=== PATIENT | male | born 1940 | race Caucasian/White ===

== ENCOUNTER 2016-06-23 12:08 | Emergency (ER) | payer OTHER ==
[2016-06-23] MEDS ORDERED: IPRATROPIUM/ALBUTEROL 3 ML NEB INH STA (12:32)
[2016-06-23] MEDS ORDERED: predniSONE 20 MG TABLET PO STA (12:34)
[2016-06-23] MEDS ORDERED: predniSONE 20 MG TABLET ONE (12:41)
[2016-06-23] MEDS ORDERED: IPRATROPIUM/ALBUTEROL 3 ML NEB INH ONE (12:47)
[2016-06-23] MEDS ORDERED: SODIUM CHLORIDE 0.9% 1,000 ML IV ONE (13:02)
[2016-06-23] MEDS ORDERED: HEPARIN 5,000 UNIT/ML VIAL IVP ONE (13:08)
[2016-06-23] MEDS ORDERED: ASPIRIN CHEW 81 MG TABLET PO STA (13:08)
[2016-06-23] MEDS ORDERED: HEPARIN 25,000 UNITS/500 ML 500 ML IV STA (13:08)
[2016-06-23] MEDS ORDERED: ASPIRIN CHEW 81 MG TABLET ONE (13:12)
[2016-06-23] MEDS ORDERED: HEPARIN 5,000 UNIT/ML VIAL ONE (13:12)
[2016-06-23] MEDS ORDERED: HEPARIN 25,000 UNITS/500 ML 500 ML IV ONE (13:12)
== END 2016-06-23 15:21 | disposition short-term general hospital (02) ==
DX: I21.4 Non-ST elevation (NSTEMI) myocardial infarction (principal); J44.9 Chronic obstructive pulmonary disease, unspecified; F17.200 Nicotine dependence, unspecified, uncomplicated; I10 Essential (primary) hypertension; E11.9 Type 2 diabetes mellitus without complications; Z79.4 Long term (current) use of insulin; E78.00 Pure hypercholesterolemia, unspecified
CPT/HCPCS: 36415; 71010; 80053; 83690; 84484; 85025; 93005; 93010; 94640; 96365; 96366; 96376; 99285; A9270; J7512; J7620

== ENCOUNTER 2016-06-23 15:20 | Outpatient (CLI) | payer OTHER | END 2016-06-23 23:59 | disposition short-term general hospital (02) | DX: I21.4 Non-ST elevation (NSTEMI) myocardial infarction (principal) | CPT/HCPCS: A0425; A0426 ==

== ENCOUNTER 2016-09-01 13:07 | Emergency (ER) | payer OTHER ==
--- NOTE | 2016-09-01 14:26 | ED Physician Documentation ---
PD HPI MALE - Stated complaint Stated Complaint: RT GROIN ABCESS PX - Chief complaint Chief Complaint: General - History obtained from History obtained from: Patient - History of Present Illness Timing - onset: How many days ago (2-3) Timing - duration: Days Timing - details: Gradual onset, Still present Associated symptoms: Scrotal swelling (right posterior focally). No: Dysuria, Urinary frequency, Discharge, Genital sore / lesion, Testiclar pain Similar symptoms before: Diagnosis (had scrotal abscess and cellulitis in the past, hospitalized for "gangrene" and did okay without surgical debridement.) Review of Systems Constitutional: denies: Fever, Chills Throat: denies: Sore throat Cardiac: denies: Chest pain / pressure, Palpitations Respiratory: denies: Dyspnea, Cough GI: denies: Nausea, Vomiting, Diarrhea : denies: Dysuria, Frequency, Discharge Skin: reports: Lesions (right scrotal as noted in HPI) Musculoskeletal: denies: Neck pain, Back pain Neurologic: denies: Focal weakness, Numbness, Near syncope PD PAST MEDICAL HISTORY - Past Medical History Cardiovascular: Hypertension, High cholesterol Respiratory: Shortness of breath Endocrine/Autoimmune: Type 2 diabetes : Other - Past Surgical History Past Surgical History: Yes General: Colonoscopy Ortho: Other - Present Medications Home Medications: Ambulatory Orders Medication Instructions Recorded Confirmed Insulin Glargine [Lantus Solostar] 12 unit SQ BID 09/04/14 09/01/16 Latanoprost 1 gm MC DAILY PM 09/04/14 09/01/16 Metoprolol Tartrate 50 mg PO BID 09/04/14 09/01/16 Aspirin [Aspirin EC] 500 mg PO DAILY 06/23/16 09/01/16 Atorvastatin Calcium 10 mg PO DAILY 06/23/16 09/01/16 Sulfamethox/Trimeth 800/160 1 each PO BID #14 tablet 09/01/16 [Bactrim Ds 800/160] glyBURIDE [Diabeta] 5 mg PO BID 09/01/16 09/01/16 - Allergies Allergies/Adverse Reactions: Allergies Allergy/AdvReac Type Severity Reaction Status Date / Time No Known Drug Allergies Allergy Verified 09/07/14 14:26 - Social History Does the pt smoke?: Yes Smoking Status: Current every day smoker Does the pt drink ETOH?: No Does the pt have substance abuse?: No - Immunizations Immunizations are current?: Yes PD ED PE NORMAL - Vitals Vital signs reviewed: Yes - General General: Alert and oriented X 3, Well developed/nourished - Cardiac Cardiac: RRR, No murmur - Respiratory Respiratory: Clear bilaterally - Abdomen Abdomen: Soft, Non tender - Male Male : Other (right posterior scrotum with rounded fluctuant red swelling c/w abscess and confirmed with U/S and no blood vessels running at area. Surrounding tissue is not tender nor cellulitic. No sores seen. ) - Rectal Rectal: Deferred - Back Back: No CVA TTP - Derm Derm: Normal color, Warm and dry Results - Vitals Vitals: Oxygen O2 Source Room air - Labs Labs: Microbiology 09/01/16 15:14 Wound Culture - Preliminary Scrotum Procedures - Abscess I&D (location) right posterior scrotum Preparation: Confirmed with ultrasound, Lidocaine 1%, With epi Incision: Incised with scalpel, Purulent drainage, Irrigated, Culture obtained. No: Packed Other: Pt tolerated well, Dressing applied, Antibiotic prescribed PD MEDICAL DECISION MAKING - ED course Complexity details: re-evaluated patient, considered differential (abscess drained and the swelling is markedly decreased. The surrounding tissue is not tender and no surrounding redness; does not appear gangrenous nor cellulitic), d /w patient Departure - Departure Disposition: 01 Home, Self Care Clinical Impression: Abscess of scrotal wall Condition: Stable Record reviewed to determine appropriate education?: Yes Instructions: ED Abscess IandD Prescriptions: Sulfamethox/Trimeth 800/160 [Bactrim Ds 800/160] 1 each PO BID #14 tablet Comments: Soak the scrotum 2-3 times daily for the next few days. Bactrim twice daily for the next week for the infection. Recheck with PMD in about 4 days, call today for an appt. Discharge Date/Time: 09/01/16 15:25
[2016-09-01] MEDS ORDERED: LIDOCAINE 1%-EPI 1:100000 20 ML MDV SUBQ STA (14:43)
[2016-09-01] MEDS ORDERED: SULFAMETH/TRIMETH DS 800/160 MG TABLET PO STA (14:43)
[2016-09-01] MEDS ORDERED: IBUPROFEN 600 MG TABLET PO STA (14:43)
[2016-09-01] MEDS ORDERED: IBUPROFEN 600 MG TABLET PO ONE (14:47)
[2016-09-01] MEDS ORDERED: LIDOCAINE 1%-EPI 1:100000 20 ML MDV ONE (14:47)
[2016-09-01] MEDS ORDERED: SULFAMETH/TRIMETH DS 800/160 MG TABLET PO ONE (14:47)
[2016-09-01 15:24] VITALS: BP 135/88
== END 2016-09-01 15:25 | disposition home or self-care (01) ==
LOC: ED 13:07
DX: N49.2 Inflammatory disorders of scrotum (principal); I10 Essential (primary) hypertension; E11.9 Type 2 diabetes mellitus without complications; F17.200 Nicotine dependence, unspecified, uncomplicated
CPT/HCPCS: 55100; 87070; 87205; 99283; A9270

== ENCOUNTER 2017-03-30 11:13 | Emergency (ER) | payer OTHER ==
[2017-03-30 11:20] VITALS: BP 163/66
[2017-03-30] MEDS ORDERED: LIDOCAINE 2%-EPI 1:100000 20 ML MDV SUBQ STA (11:45)
[2017-03-30] MEDS ORDERED: SULFAMETH/TRIMETH DS 800/160 MG TABLET PO STA (12:01)
--- NOTE | 2017-03-30 12:08 | ED Physician Documentation ---
PD HPI SKIN - Stated complaint Stated Complaint: BUMP ON STOMACH - Chief complaint Chief Complaint: Wound - History obtained from History obtained from: Patient - History of Present Illness Timing - onset: How many days ago (4) Timing - duration: Days (4) Timing - details: Gradual onset Pain level max: 8 Pain level now: 8 Location: Other (R groin) Quality / character: Painful, Swelling Improved by: Other (nothing) Worsened by (comment): COMMENT (nothing) Associated symptoms: No: Fever, Myalgias, Joint pain, Headache, Facial swelling , Dyspnea, Abd pain, N/V/D, Urinary sx Contributing factors: No: Exposed to medication, Exposed to food, Exposed to soap / lotion, Exposed to Poison laina/oak, Insect bite /sting, Recent illness Similar symptoms before: Diagnosis (abscess) Recently seen: Not recently seen Review of Systems Constitutional: denies: Fever, Chills GI: denies: Vomiting : denies: Dysuria, Frequency, Hesitancy PD PAST MEDICAL HISTORY - Past Medical History Past Medical History: Yes Cardiovascular: Hypertension, High cholesterol Respiratory: Shortness of breath Endocrine/Autoimmune: Type 2 diabetes : Other - Past Surgical History Past Surgical History: Yes General: Colonoscopy Ortho: Other - Present Medications Home Medications: Ambulatory Orders Medication Instructions Recorded Confirmed Insulin Glargine [Lantus Solostar] 12 unit SQ BID 09/04/14 09/01/16 Latanoprost 1 gm MC DAILY PM 09/04/14 09/01/16 Metoprolol Tartrate 50 mg PO BID 09/04/14 09/01/16 Aspirin [Aspirin EC] 500 mg PO DAILY 06/23/16 09/01/16 Atorvastatin Calcium 10 mg PO DAILY 06/23/16 09/01/16 Sulfamethox/Trimeth 800/160 1 each PO BID #14 tablet 09/01/16 [Bactrim Ds 800/160] glyBURIDE [Diabeta] 5 mg PO BID 09/01/16 09/01/16 Sulfamethox/Trimeth 800/160 1 each PO BID #14 tablet 03/30/17 [Bactrim Ds 800/160] - Allergies Allergies/Adverse Reactions: Allergies Allergy/AdvReac Type Severity Reaction Status Date / Time No Known Drug Allergies Allergy Verified 09/07/14 14:26 - Social History Does the pt smoke?: Yes Smoking Status: Current every day smoker Does the pt drink ETOH?: No Does the pt have substance abuse?: No - Immunizations Immunizations are current?: Yes PD ED PE NORMAL - Vitals Vital signs reviewed: Yes - General General: Alert and oriented X 3, No acute distress - Male Male : Other (Large right groin abscess approximately golf ball sized. Erythematous and fluctuant. This is at the top of the scrotum.) - Derm Derm: Warm and dry - Neuro Neuro: Alert and oriented X 3 - Psych Psych: Normal mood, Normal affect Results - Vitals Vitals: Vital Signs - 24 hr 03/30/17 11:17 Temperature 36.4 C L Heart Rate 57 L Respiratory 18 Rate Blood Pressure 163/66 H O2 Saturation 99 Oxygen O2 Source Room air Procedures - Abscess I&D (location) Scrotum Preparation: Confirmed with ultrasound, Chlorhexadine, Lidocaine 2 % Incision: Incised with scalpel, Purulent drainage, Irrigated, Packed, Culture obtained Other: Pt tolerated well, Dressing applied, Antibiotic prescribed PD MEDICAL DECISION MAKING - ED course Complexity details: reviewed old records, considered differential, d/w patient ED course: Patient is a 76-year-old male who presents to the emergency department with 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 States that this happens 2-3 times per year. It was incised and drained today. Will start on Bactrim. Has never followed up with a surgeon to see if there is a cyst or fistula tracts that can be removed to prevent this from recurring. Will have him follow-up with his doctor for repeat evaluation and recommend that he see surgery to see if anything surgically can be done. Patient counseled regarding signs and symptoms for which I believe and urgent re-evaluation would be necessary. Patient with good understanding of and agreement to plan and is comfortable going home at this time This document was made in part using voice recognition software. While efforts are made to proofread this document, sound alike and grammatical errors may occur. Departure - Departure Disposition: 01 Home, Self Care Clinical Impression: Abscess of scrotal wall Condition: Good Instructions: ED Abscess IandD [facility]: [facility]Provider Group] Dg Rene MD [Provider Admit Priv/Credential] - your,doctor in 4 days [Other] Prescriptions: Sulfamethox/Trimeth 800/160 [Bactrim Ds 800/160] 1 each PO BID #14 tablet Comments: Take all antibiotics until gone. return if you worsen. Follow up with your doctor in 3-4 days for wound check Discharge Date/Time: 03/30/17 12:19
== END 2017-03-30 12:19 | disposition home or self-care (01) ==
LOC: ED 11:13
DX: N49.2 Inflammatory disorders of scrotum (principal); I10 Essential (primary) hypertension; E11.9 Type 2 diabetes mellitus without complications; Z79.4 Long term (current) use of insulin; E78.00 Pure hypercholesterolemia, unspecified; F17.200 Nicotine dependence, unspecified, uncomplicated
CPT/HCPCS: 55100; 87070; 87205; 99283; A9270

== ENCOUNTER 2023-06-11 20:50 | Outpatient (CLI) | payer OTHER | END 2023-06-11 20:51 | disposition EMS.NT | LOC: EMS 20:50 | DX: S60.512A Abrasion of left hand, initial encounter (principal); S60.511A Abrasion of right hand, initial encounter; S00.93XA Contusion of unspecified part of head, initial encounter; V00.811A Fall from moving wheelchair (powered), initial encounter; Y93.89 Activity, other specified; Y92.480 Sidewalk as the place of occurrence of the external cause ==

== ENCOUNTER 2023-10-06 10:13 | Outpatient (CLI) | payer MEDICARE, MEDICAID | END 2023-10-06 23:59 | disposition short-term general hospital (02) | LOC: EMS 10:13 | PROVIDERS: ATTEND Emergency Medicine | DX: R06.02 Shortness of breath (principal); R42 Dizziness and giddiness | CPT/HCPCS: A0425; A0427; A0888 ==

== ENCOUNTER 2023-12-30 09:30 | Observation (INO) ==
--- NOTE | 2023-12-30 09:37 | ED Physician Documentation ---
History of Present Illness Stated complaint Stated Complaint: GEN WEAKNESS Chief complaint Chief Complaint: General Additonal information Additional information: This is an 83-year-old gentleman with history of COPD, non-STEMI, type II DM, A- fib. He wears oxygen at home (1.5 L at baseline). He was admitted here about a week ago for COPD exacerbation, aspiration pneumonia, mild elevation in troponin, CARISSA on CKD, hyperkalemia. He presents by ambulance this morning with report of generalized weakness. Patient is somewhat of a slow historian and potentially a little delirious/encephalopathic. He says he is been weak for about 8 hours. More short of breath than usual. Paramedics report that he was unable to get his pants on this morning due to weakness. [place] Coma Scale Assess Eye opening: Spontaneous Verbal response: Confused Motor response: Obeys Commands Total score: 14 Meds/Allgy Home Medications Ambulatory Orders Medication Instructions Recorded Confirmed bumetanide 0.5 mg tablet 1.5 mg PO DAILY 12/24/23 12/30/23 carvedilol 25 mg tablet 25 mg PO BID 12/24/23 12/30/23 cholecalciferol (vitamin D3) 125 5,000 unit PO DAILY 12/24/23 12/30/23 mcg (5,000 unit) capsule diphenhydramine 25 1 tab PO QPM PRN sleep 12/24/23 12/30/23 mg-acetaminophen 500 mg tablet (Acetaminophen PM) docusate sodium 100 mg capsule 100 mg PO DAILY PRN constipation 12/24/23 12/30/23 gabapentin 400 mg capsule 400 mg PO QPM 12/24/23 12/30/23 insulin aspar prt-insulin aspart See Rx Instructions subcut BID 12/24/23 12/30/23 100 unit/mL (70-30) subcutaneous soln (Novolog Mix 70-30 U-100 Insuln) isosorbide mononitrate 60 mg 60 mg PO BID 12/24/23 12/30/23 tablet,extended release 24 hr latanoprost 0.005 % eye drops 1 drp ophthalmic (eye) QPM 12/24/23 12/30/23 melatonin 1 mg tablet 4 mg PO HS PRN sleep 12/24/23 12/30/23 semaglutide 0.25 mg or 0.5 mg (2 0.5 mg subcut FR 12/24/23 12/30/23 mg/1.5 mL) subcutaneous pen injector (Ozempic) tiotropium bromide 1.25 2 inh inhalation DAILY 12/24/23 12/30/23 mcg/actuation mist for inhalation (Spiriva Respimat) amlodipine 2.5 mg tablet (Norvasc) 2.5 mg PO DAILY 12/27/23 12/30/23 apixaban 2.5 mg tablet 2.5 mg PO BID 12/27/23 12/30/23 atorvastatin 40 mg tablet (Lipitor) 40 mg PO DAILY 12/27/23 12/30/23 prednisone 20 mg tablet 20 mg PO DAILY #2 tabs 12/27/23 12/30/23 tamsulosin 0.4 mg capsule 0.4 mg PO DAILY 12/27/23 12/30/23 Allergies Allergies Allergy/AdvReac Type Severity Reaction Status Date / Time No Known Drug Allergies Allergy Verified 12/23/23 15:09 [facility] Medical History Medical History (Updated 12/30/23 @ 11:28 by Mika Grady MD) Diabetes Social History Social History Smoking Status: Current every day smoker Do you dip or chew tobacco?: No Do you vape?: No Patient requests smoking cessation consult: No Initiate information on smoking cessation: No Relationship: Level: Assisted Home Mobility Equipment: Wheelchair Do you feel safe in your home environment?: Yes Suffered physical, verbal, emotional, or financial abuse?: No History of Abuse: No POLST Patient has POLST: Yes POLST Status: Full Code Exam Constitutional Slow to answer questions. Unaware of the date. Oriented to person and place. HENMT oropharynx normal Eyes PERRL Respiratory Very diminished breath sounds throughout Cardiovascular Irregularly irregular and rapid without murmur Gastrointestinal abdomen soft to palpation and nontender to palpation Neurology GCS calculation - Eye opening: Spontaneous Verbal response: Confused Motor response: Obeys Commands [place] Coma Scale total score: 14 Results Vitals Vitals: Vital Signs - 24 hr 12/30/23 09:38 12/30/23 09:50 12/30/23 10:06 Temperature 36.8 C Temperature Source Temporal Artery Scan Pulse Rate 95 H 76 Respiratory Rate 25 H 22 Blood Pressure 149/81 H O2 Saturation 92 88 L Oxygen Delivery Method O2 Source Oxymask Oxymask Simple Mask Oxygen Flow Rate If not protocol: Oxygen Flow, liters/minute 4 2 4 Fraction of Inspired Oxygen (FIO2) FiO2 (%) Pain Intensity 2 12/30/23 10:09 12/30/23 10:11 12/30/23 11:45 Temperature Temperature Source Pulse Rate 79 Respiratory Rate Blood Pressure O2 Saturation Oxygen Delivery Method Mask Mask O2 Source Oxygen Flow Rate 4 4 If not protocol: Oxygen Flow, liters/minute 4 Fraction of Inspired Oxygen (FIO2) 75 FiO2 (%) Pain Intensity 12/30/23 13:00 12/30/23 13:29 12/30/23 13:52 Temperature Temperature Source Pulse Rate 92 H 80 77 Respiratory Rate 15 16 Blood Pressure 164/92 H 117/89 O2 Saturation 98 96 Oxygen Delivery Method O2 Source BIPAP Room air Oxygen Flow Rate If not protocol: Oxygen Flow, liters/minute Fraction of Inspired Oxygen (FIO2) 50 FiO2 (%) 50 Pain Intensity 0 0 12/30/23 15:00 Temperature Temperature Source Pulse Rate 80 Respiratory Rate 19 Blood Pressure 176/98 H O2 Saturation 100 Oxygen Delivery Method O2 Source BIPAP Oxygen Flow Rate If not protocol: Oxygen Flow, liters/minute Fraction of Inspired Oxygen (FIO2) FiO2 (%) 50 Pain Intensity 0 Oxygen O2 Source BIPAP Oxygen Flow Rate 4 EKG (time done) 0956: EKG releavant findings:: EKG personally interpreted by author of this note. Relevant findings are: Atrial fibrillation with a ventricular rate of 85. He is right bundle branch block and left anterior fascicular block. There is T wave inversion with mild ST depression laterally. Compared to the most recent prior EKG on the chart from December 22 of this year there is no interval change. Labs Labs: Laboratory Tests 12/30/23 12/30/23 12/30/23 10:06 12:54 13:15 WBC 10.4 RBC 4.25 L Hgb 12.9 L Hct 43.4 MCV 102.1 H MCH 30.4 MCHC 29.7 L RDW 16.3 H Plt Count 111 L MPV 10.5 Neut # (Auto) 7.9 H Lymph # (Auto) 1.6 [place] # (Auto) 0.7 Eos # (Auto) 0.1 Baso # (Auto) 0.0 Absolute Nucleated RBC 0.02 Nucleated RBC % 0.2 Bld Gas Analysis Time 1323 Sample Site RIGHT RADIAL ABG pH 7.23 L ABG pCO2 63 H* ABG pO2 87 ABG HCO3 26.1 H ABG Total CO2 28.0 ABG O2 Saturation 96 ABG Base Excess -2.6 L Viet Test POSITIVE VBG pH 7.152 L* VBG pCO2 77.3 H VBG pO2 41.0 VBG HCO3 26.4 VBG Total CO2 28.8 VBG O2 Saturation 75.4 VBG Base Excess -4.1 L Respiration Rate 18 O2 Delivery Device BiPAP Vent Mode SYNCHRONOUS/TIMES FiO2 50.00 EPAP 8 IPAP 14 Sodium 140 Potassium 4.7 H Chloride 108 Carbon Dioxide 29 Anion Gap 3.0 L BUN 70 H Creatinine 3.3 H Estimated GFR (MDRD) 18 L Glucose 265 H Lactic Acid 0.9 Calcium 8.7 Magnesium 2.4 H Total Bilirubin 0.4 AST 6 L ALT 8 L Alkaline Phosphatase 99 B-Natriuretic Peptide 958 H Total Protein 5.6 L Albumin 3.4 Globulin 2.2 Albumin/Globulin Ratio 1.5 Urine Color YELLOW Urine Clarity CLEAR Urine pH 6.0 Ur Specific [place] 1.020 Urine Protein NEGATIVE Urine Glucose (UA) >=1000 H Urine Ketones NEGATIVE Urine Occult Blood NEGATIVE Urine Nitrite NEGATIVE Urine Bilirubin NEGATIVE Urine Urobilinogen 0.2 (NORMAL) Ur Leukocyte Esterase NEGATIVE Ur Microscopic Review NOT INDICATED Urine Opiates Screen NEGATIVE Ur Buprenorphine Scrn NEGATIVE Ur Oxycodone Screen NEGATIVE Urine Methadone Screen NEGATIVE Ur Barbiturates Screen NEGATIVE Ur Tricyclics Screen NEGATIVE Ur Phencyclidine Scrn NEGATIVE Ur Amphetamine Screen NEGATIVE U Methamphetamines Scrn NEGATIVE U Benzodiazepines Scrn NEGATIVE Urine Cocaine Screen NEGATIVE U Cannabinoids Screen NEGATIVE Ur Drug Screen Comment CUTOFF CONC BELOW: Ethyl Alcohol < 10.0 Rads (name of study) 1v cxr: Relevant Findings:: Final report received and EMP independent interpretation of test Interpretation: Findings worsening from the prior, with cardiomegaly, interstitial prominence and bilateral pleural effusions. CHF is suspected. CT Head- NAD: Relevant Findings:: Final report received and EMP independent interpretation of test PD Medical Decision Making ED course ED course: 83-year-old gentleman presents encephalopathic with acute on chronic respiratory failure. On his initial 1.5 L of home O2 he was satting in the mid 80s and required about 4 L here. Differential diagnosis would include COPD, CHF, PE (although that is considered much less likely as he is anticoagulated). Workup demonstrates a venous gas showing significant respiratory acidosis with CO2 retention, CBC was basically unremarkable. CMP showing stable significant kidney disease, hyperglycemia. His BNP was elevated at 958. Chest x-ray showing predominantly CHF. He had already received a DuoNeb and added IV Lasix. Spoke with the hospitalist for admission approximately 11:30 AM. He feels we should put him on BiPAP to get his CO2 down and RT is called for same. Critical Care Time(min): 42 Time Includes: Direct patient care, Review records, Reassess patient, Document care, Coordinate care, Medical consult and Family consult for tx dec Procedures included in critical care time: Peripheral IV Procedures excluded from critical care time: EKG Discharge Plan Discharge Patient Disposition: 66 [facility] DC/Xfer Condition: Stable Clinical Impression: Respiratory acidosis COPD (chronic obstructive pulmonary disease) Qualifiers: COPD type: COPD with acute exacerbation Qualified Code(s): J44.1 - Chronic obstructive pulmonary disease with (acute) exacerbation Acute on chronic kidney failure Qualifiers: Acute renal failure type: unspecified Chronic kidney disease stage: unspecified stage Qualified Code(s): N17.9 - Acute kidney failure, unspecified Interventions: ED Admission Assessment Last Done: 12/30/23 16:19
[2023-12-30] MEDS: IPRATROPIUM/ALBUTEROL 3 ML NEB INH STA (10:03)
[2023-12-30 10:14] LABS: VBG BASE EXCESS -4.1 mmol/L (-2 - +2); VBG HCO3 26.4 mmol/L (23-28); VBG OXYGEN SATURATION 75.4 % (60-80); VBG PCO2 77.3 mmHg (41-51); VBG TOTAL CO2 28.8 mmol/L (24-29)
[2023-12-30 10:15] LABS: EOSINOPHILS # (AUTO) 0.1 10^3/uL (0.0-0.7); EOSINOPHILS % (AUTO) 0.7 %; HCT - HEMATOCRIT 43.4 % (42.0-52.0); HGB - HEMOGLOBIN 12.9 g/dL (14.0-18.0); LYMPHOCYTES # (AUTO) 1.6 10^3/uL (1.5-3.5); LYMPHOCYTES % (AUTO) 15.6 %; MEAN CORPUSCULAR HEMOGLOBIN 30.4 pg (27.0-31.0); MEAN CORPUSCULAR HGB CONC 29.7 g/dL (32.0-36.0); MEAN CORPUSCULAR VOLUME 102.1 fL (80.0-94.0); MEAN PLATELET VOLUME 10.5 fL (7.4-11.4); MONOCYTES # (AUTO) 0.7 10^3/uL (0.0-1.0); MONOCYTES % (AUTO) 7.1 %; NEUTROPHILS # (AUTO) 7.9 10^3/uL (1.5-6.6); NEUTROPHILS % (AUTO) 75.9 %; NRBC ABSOLUTE COUNT (AUTO) 0.02 x10^3/uL; NUCLEATED RED BLOOD CELLS AUTO 0.2 /100WBC; PLT - PLATELET COUNT 111 10^3/uL (130-450); RED BLOOD COUNT 4.25 10^6/uL (4.70-6.10); RED CELL DISTRIBUTION WIDTH 16.3 % (12.0-15.0); WHITE BLOOD COUNT 10.4 x10^3/uL (4.8-10.8)
[2023-12-30 10:16] LABS: VBG PH 7.152 (7.31-7.41)
[2023-12-30 10:29] LABS: ALBUMIN 3.4 g/dL (3.2-5.5); ALBUMIN/GLOBULIN RATIO 1.5 (1.0-2.2); ALKALINE PHOSPHATASE 99 IU/L (42-121); ALT ALANINE AMINOTRANSFERASE 8 IU/L (10-60); AST ASPARTATE AMINOTRANSFERASE 6 IU/L (10-42); BILIRUBIN,TOTAL 0.4 mg/dL (0.2-1.0); BUN - BLOOD UREA NITROGEN 70 mg/dL (6-20); CALCIUM 8.7 mg/dL (8.5-10.3); CARBON DIOXIDE - CO2 29 mmol/L (21-32); CHLORIDE 108 mmol/L (101-111); CREATININE 3.3 mg/dL (0.6-1.3); ETOH - ETHANOL < 10.0 mg/dL; GFR - MDRD 18 (>89); GLUCOSE 265 mg/dL (74-104); MAGNESIUM 2.4 mg/dL (1.7-2.3); POTASSIUM 4.7 mmol/L (3.5-4.5); SODIUM 140 mmol/L (135-145); TOTAL PROTEIN 5.6 g/dL (6.4-8.9)
--- NOTE | 2023-12-30 10:35 | XRAY Report ---
PROCEDURE: XR Chest 1V INDICATIONS: dyspnea TECHNIQUE: One view of the chest was acquired. COMPARISON: 12/23/2023 FINDINGS: Surgical changes and devices: None. Lungs and pleura: Generalized interstitial prominence can be seen. There is blunting of the costophr enic angles on both sides. No pneumothorax. Mediastinum: Mediastinal contours appear normal. Heart size is moderately enlarged. Bones and chest wall: No suspicious bony lesions. Overlying soft tissues appear unremarkable. IMPRESSION: Findings worsening from the prior, with cardiomegaly, interstitial prominence and bilateral pleural e ffusions. CHF is suspected. Reviewed by: Dmitriy Underwood MD on 12/30/2023 9:33 AM SOFIA Approved by: Dmitriy Underwood MD on 12/30/2023 9:33 AM SOFIA Station ID: [id number]
[2023-12-30] MEDS: FUROSEMIDE 40 MG/4 ML VIAL IVP STA (11:11)
--- NOTE | 2023-12-30 11:20 | CT Report ---
PROCEDURE: CT Head WO INDICATIONS: ams TECHNIQUE: Noncontrast 4.5 mm thick angled axial sections acquired from the foramen magnum to the vertex. For r adiation dose reduction, the following was used: automated exposure control, adjustment of mA and/or kV according to patient size. COMPARISON: CT head 12/23/2023. FINDINGS: Image quality: Excellent. CSF spaces: Basal cisterns are patent. No extra-axial fluid collections. Ventricles are symmetric in size and shape. Brain: No midline shift. No intracranial masses or hemorrhage. Small area of chronic encephalomalac ia is seen at the superior right cerebellum, unchanged. Hypodensities in the subcortical and perivent ricular white matter are most commonly seen in setting of chronic microvascular ischemic changes. Age -related mild cerebral and cerebellar volume loss is seen. Intracranial vascular calcifications are n oted in the internal carotid arteries. Skull and face: Calvarium and visualized facial bones are intact, without suspicious lesions. Sinuses: Visualized sinuses and mastoids are clear. IMPRESSION: 1.No acute intracranial pathology. 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 Reviewed by: Lion Clark MD on 12/30/2023 11:19 AM PDT Approved by: Lion Clark MD on 12/30/2023 11:19 AM PDT Station ID: [id number]
[2023-12-30] MEDS: methylPREDNISolone SUCCINATE 40 MG/ML VIAL IVP STA (12:59)
[2023-12-30 13:12] LABS: BILIRUBIN,URINE NEGATIVE (NEGATIVE); GLUCOSE, URINE (UA) >=1000 mg/dL (NEGATIVE); KETONES,URINE (UA) NEGATIVE (NEGATIVE); LEUKOCYTE ESTERASE, URINE NEGATIVE (NEGATIVE); NITRITE,URINE NEGATIVE (NEGATIVE); OCCULT BLOOD,URINE NEGATIVE (NEGATIVE); PROTEIN,URINE NEGATIVE (NEGATIVE); UROBILINOGEN,URINE 0.2 (NORMAL) E.U./dL (NORMAL)
[2023-12-30 13:15] LABS: CLARITY,URINE CLEAR (CLEAR)
[2023-12-30 13:22] LABS: ABG BASE EXCESS -2.6 mmol/L (-2.0-3.0); ABG HCO3 26.1 mmol/L (22.0-26.0); ABG OXYGEN SATURATION 96 % (94-98); ABG PH 7.23 (7.35-7.45); ABG PO2 87 mmHg (80-100); ALLEN TEST POSITIVE
[2023-12-30 13:23] LABS: ABG MODE OF VENTILATION SYNCHRONOUS/TIMES; ABG RESPIRATORY RATE 18 b/min
[2023-12-30 13:25] LABS: ABG PCO2 63 mmHg (34-45)
[2023-12-30 13:26] LABS: COCAINE SCREEN URINE NEGATIVE (NEGATIVE); METHAMPHETAMINES SCREEN, URINE NEGATIVE (NEGATIVE); THC CANNABINOID SCREEN, URINE NEGATIVE (NEGATIVE)
[2023-12-30 13:27] LABS: AMPHETAMINE SCREEN,URINE NEGATIVE (NEGATIVE); BARBITURATE SCREEN,UR NEGATIVE (NEGATIVE); BENZODIAZEPINES SCREEN, URINE NEGATIVE (NEGATIVE); BUPRENORPHINE SCREEN, URINE NEGATIVE (NEGATIVE); METHADONE SCREEN, URINE NEGATIVE (NEGATIVE); OPIATE SCREEN, URINE NEGATIVE (NEGATIVE); OXYCODONE SCREEN, URINE NEGATIVE (NEGATIVE); TRICYCLIC ANTIDEPRESSANT,URINE NEGATIVE (NEGATIVE)
[2023-12-30] MEDS ORDERED: IPRATROPIUM/ALBUTEROL 3 ML NEB INH SCH (15:00)
[2023-12-30] MEDS: IPRATROPIUM/ALBUTEROL 3 ML NEB INH SCH (15:02)
[2023-12-30] MEDS ORDERED: ONDANSETRON 4 MG/2 ML VIAL IVP PRN (16:05)
--- NOTE | 2023-12-30 17:42 | HISTORY & PHYSICAL EXAMINATION ---
History of Present Illness Admitted From Admitted From:: home History Obtained From Records Reviewed: EMR, History obtained from: patient, chart Exam Limitations: AMS History of Present Illness HPI Comment/Other: 83 yo M with pmhx of COPD on 1-2 L NC O2 at home, DM2 on insulin, HTN, HLD, CKD, recent admission here 12/22- 12/26 for AMS, CO2 retention, hypercarbic respiratory failure, CARISSA. Presenting today by EMS due to generalized weakness. Pt reported onset ~ 8 hrs ago. On my exam he is somnolent, rousable to voice, speaks in few short phrases and then dozes off. Denies pain. Cannot provide much history. In the ED afebrile, HR 95, RR 25, sat 88%, 149/81. Pt was given duoneb and lasix 40 mg iv. He was found to have respiratory acidosis and placed on BiPAP. Meds/Allgy Home Medications Ambulatory Orders Medication Instructions Recorded Confirmed bumetanide 0.5 mg tablet 1.5 mg PO DAILY 12/24/23 12/30/23 carvedilol 25 mg tablet 25 mg PO BID 12/24/23 12/30/23 cholecalciferol (vitamin D3) 125 5,000 unit PO DAILY 12/24/23 12/30/23 mcg (5,000 unit) capsule diphenhydramine 25 1 tab PO QPM PRN sleep 12/24/23 12/30/23 mg-acetaminophen 500 mg tablet (Acetaminophen PM) docusate sodium 100 mg capsule 100 mg PO DAILY PRN constipation 12/24/23 12/30/23 gabapentin 400 mg capsule 400 mg PO QPM 12/24/23 12/30/23 insulin aspar prt-insulin aspart See Rx Instructions subcut BID 12/24/23 12/30/23 100 unit/mL (70-30) subcutaneous soln (Novolog Mix 70-30 U-100 Insuln) isosorbide mononitrate 60 mg 60 mg PO BID 12/24/23 12/30/23 tablet,extended release 24 hr latanoprost 0.005 % eye drops 1 drp ophthalmic (eye) QPM 12/24/23 12/30/23 melatonin 1 mg tablet 4 mg PO HS PRN sleep 12/24/23 12/30/23 semaglutide 0.25 mg or 0.5 mg (2 0.5 mg subcut FR 12/24/23 12/30/23 mg/1.5 mL) subcutaneous pen injector (Ozempic) tiotropium bromide 1.25 2 inh inhalation DAILY 12/24/23 12/30/23 mcg/actuation mist for inhalation (Spiriva Respimat) amlodipine 2.5 mg tablet (Norvasc) 2.5 mg PO DAILY 12/27/23 12/30/23 apixaban 2.5 mg tablet 2.5 mg PO BID 12/27/23 12/30/23 atorvastatin 40 mg tablet (Lipitor) 40 mg PO DAILY 12/27/23 12/30/23 prednisone 20 mg tablet 20 mg PO DAILY #2 tabs 12/27/23 12/30/23 tamsulosin 0.4 mg capsule 0.4 mg PO DAILY 12/27/23 12/30/23 Allergies Allergies Allergy/AdvReac Type Severity Reaction Status Date / Time No Known Drug Allergies Allergy Verified 12/23/23 15:09 [facility] Medical History Medical History (Updated 12/30/23 @ 17:41 by Joe Cooper MD) Diabetes Social History Social History Smoking Status: Current every day smoker Second hand tobacco smoke exposure: Yes Do you dip or chew tobacco?: No Do you vape?: No Patient requests smoking cessation consult: No Initiate information on smoking cessation: No Smoking Status Details: states not interested in quitting Relationship: Level: Independent Home Mobility Equipment: Walker Do you feel safe in your home environment?: Yes Suffered physical, verbal, emotional, or financial abuse?: No History of Abuse: No Substance Use: denies use POLST Patient has POLST: Yes POLST Status: Full Code Exam Exam older man lying in bed, NAD, sclera anicteric, MMM, lungs: diminished throughout, mild diffuse wheeze, nonlabored irreg irreg, S1S2, 3+ edema RLE abd soft, NT, ND, BS+ somnolent, rousable to voice, says few word but minimal communication, squeezes hands to command, PERRL, normal tone, no tremor Conclusion/Plan Problem List (1) COPD (chronic obstructive pulmonary disease): Qualifiers: COPD type: COPD with acute exacerbation Qualified Code(s): J44.1 - Chronic obstructive pulmonary disease with (acute) exacerbation (2) Acute hypercapnic respiratory failure: Plan: 83 yo M with pmhx of COPD on 1-2 L NC O2 at home, DM2 on insulin, HTN, HLD, CKD, afib on DOAC presenting with weakness, AMS, found to have CO2 retention and respiratory acidosis, elevated BNP. 1. COPD exacerbation, acute on chronic hypoxic and hypercarbic resp failure: Lambert dominguez recent admission, pt was treated with BiPAP for 24-48 hours and then remained comfortable off BiPAP for a couple days prior to discharge. At home he is not on CPAP or BiPAP. Now evidence of CHF and volume overload with elevated BNP and pulm edema on CXR. Prior admission he stated resp problems are caused by NC O2 dislodgment while sleeping. On arrival [facility]BG 7.15/77. PaCO2 ~ 50 on prior discharge. Improved after a few hours on BiPAP PaCO2 trended down to 63, acidosis improved. Mental status markedly improved. Only sedating med he is on is gabapentin, but not high dose. Unclear why he ended up with acute CO2 retention again. Utox neg, etoh level neg. - Wean off BiPAP today. Follow VBG q 12 hrs and replace on BiPAP if CO2 rising or AMS or respiratory distress. - cont home NC 1-2 L with goal sat 88-94% - solumedrol 40 mg iv q 8 for now - scheduled duonebs q 4 - cont home spiriva - will hold off on abx given recent course 2. suspect new onset CHF, HTN: no TTE in our system. On bumex 1.5 mg daily. [facility] care [facility] No ACS on EKG. - obtain outpt records - obtain TTE - lasix 40 iv BID today - cont home carvedilol, ISMN, amlodipine 3. CKD 4, hyperkalemia: pt notes he follows with nephrology outpt in [place] and has had kidney problems for the past few years. I discussed his case with his PMD Dr. France last week and received prior Cr values. Baseline Cr in recent months has been 3.3-3.5. Hyperkalemia due to CKD. - monitor 4. DM2, uncontrolled with hyperglycemia: on 70/30 regimen at home: 12 units q am, 10-16 units q hs. Steroids contributing to hyperglycemia. Glu 260s now. A1c last month 8.5. - lantus 15 units Q hs, hold 70/30 while inpt - SSI, QID fingersticks 5. afib: - cont home apixaban and BB dvt ppx: on DOAC Dispo plan and GOC: Came from home with . D/c home pending improvement in AMS and volume status. PMD Dr. Angel France in [facility] unable to reach by phone today- no answer Lab Results Lab results reviewed: Yes 12/30/23 10:06 12/30/23 10:06 Diagnostic Imaging Results Diagnostic Imaging Results Comments: CXR: cardiomegaly, worse interstitial prominence, suspicious for CHF EKG Results EKG Interpreted Independently: Yes EKG Findings: afib, RBBB- stable from prior
[2023-12-30] MEDS: SODIUM CHLORIDE FLUSH 0.9% 10 ML SYRINGE IVP SCH (17:53)
[2023-12-30] MEDS: ISOSORBIDE MONONITRATE ER 30 MG TABLET PO SCH (18:21)
[2023-12-30] MEDS: carvediloL 12.5 MG TABLET PO SCH (18:21)
[2023-12-30] MEDS: IPRATROPIUM 0.2 MG/ML NEB INH SCH (19:09)
[2023-12-30] MEDS: FUROSEMIDE 40 MG/4 ML VIAL IVP SCH (19:47)
[2023-12-30] MEDS: APIXABAN 2.5 MG TABLET PO SCH (21:16)
[2023-12-30] MEDS: INSULIN GLARGINE-YFGN 300 UNIT/3 ML PEN SUBQ SCH (21:20)
[2023-12-30] MEDS: INSULIN LISPRO 300 UNIT/3 ML PEN SUBQ SCH (21:21)
[2023-12-30] MEDS: LATANOPROST 0.005% OPHTH DROPS EACHEYE SCH (21:27)
[2023-12-30 22:36] LABS: VBG PCO2 59.8 mmHg (41-51); VBG PH 7.272 (7.31-7.41); VBG PO2 30.2 mmHg (25-47); VBG TOTAL CO2 28.8 mmol/L (24-29)
[2023-12-30 22:37] LABS: VBG BASE EXCESS -1.1 mmol/L (-2 - +2); VBG OXYGEN SATURATION 62.3 % (60-80)
[2023-12-31] MEDS: MELATONIN 3 MG TABLET PO PRN (00:14)
[2023-12-31 04:59] LABS: HCT - HEMATOCRIT 39.2 % (42.0-52.0); HGB - HEMOGLOBIN 12.2 g/dL (14.0-18.0); LYMPHOCYTES # (AUTO) 0.7 10^3/uL (1.5-3.5); LYMPHOCYTES % (AUTO) 7.1 %; MEAN CORPUSCULAR HEMOGLOBIN 30.3 pg (27.0-31.0); MEAN CORPUSCULAR HGB CONC 31.1 g/dL (32.0-36.0); MEAN CORPUSCULAR VOLUME 97.5 fL (80.0-94.0); MEAN PLATELET VOLUME 10.9 fL (7.4-11.4); MONOCYTES # (AUTO) 0.3 10^3/uL (0.0-1.0); MONOCYTES % (AUTO) 3.6 %; NEUTROPHILS # (AUTO) 8.2 10^3/uL (1.5-6.6); NEUTROPHILS % (AUTO) 88.9 %; NRBC ABSOLUTE COUNT (AUTO) 0.02 x10^3/uL; NUCLEATED RED BLOOD CELLS AUTO 0.2 /100WBC; PLT - PLATELET COUNT 102 10^3/uL (130-450); RED BLOOD COUNT 4.02 10^6/uL (4.70-6.10); RED CELL DISTRIBUTION WIDTH 15.7 % (12.0-15.0); WHITE BLOOD COUNT 9.3 x10^3/uL (4.8-10.8)
[2023-12-31 05:02] LABS: CALCIUM, IONIZED 1.1 mmol/L (1.15-1.33); VBG BASE EXCESS -1.9 mmol/L (-2 - +2); VBG HCO3 24.8 mmol/L (23-28); VBG OXYGEN SATURATION 88.6 % (60-80); VBG PCO2 50.2 mmHg (41-51); VBG PH 7.312 (7.31-7.41); VBG PH 7.324 (7.31-7.41); VBG PO2 52.3 mmHg (25-47); VBG TOTAL CO2 26.4 mmol/L (24-29)
[2023-12-31 05:12] LABS: CALCIUM 8.5 mg/dL (8.5-10.3); CREATININE 3.1 mg/dL (0.6-1.3); MAGNESIUM 2.2 mg/dL (1.7-2.3); PHOSPHORUS 4.3 mg/dL (2.5-5.0); POTASSIUM 4.7 mmol/L (3.5-4.5)
[2023-12-31] MEDS: TAMSULOSIN 0.4 MG CAPSULE PO SCH (08:50)
[2023-12-31] MEDS: amLODIPine 5 MG TABLET PO SCH (08:50)
[2023-12-31] MEDS: DOCUSATE SODIUM 100 MG CAPSULE PO PRN (08:51)
[2023-12-31] MEDS: CHOLECALCIFEROL 5,000 UNIT CAPSULE PO SCH (08:52)
[2023-12-31] MEDS: ATORVASTATIN 40 MG TABLET PO SCH (08:52)
[2023-12-31] MEDS: IPRATROPIUM/ALBUTEROL 3 ML NEB INH SCH (11:17)
[2023-12-31] MEDS: SODIUM CHLORIDE FLUSH 0.9% 10 ML SYRINGE IVP PRN (14:10)
--- NOTE | 2023-12-31 15:08 | PHARMACY PROGRESS NOTE ---
Best Possible Medication History Admit Date and Time: 12/30/23 [id number] Processed by: Pharmacy Medications reviewed in ED?: Yes Medication History completed: Yes Patient Interview: Completed (by diploma pharmacy technician, Merissa) Secondary Source(s): Insurance records and Previous admit records [facility] Statement: As the person ultimately responsible for medication therapy, providers are able to order a medication from an existing home medication list in [facility] via the "Reconcile Routine" prior to Confirmation of that medication by support director. Such practice is discouraged except when the physician, in their clinical judgment, deems that a medical need exists for a medication without regard to previous use.
[2023-12-31] MEDS: INSULIN LISPRO 300 UNIT/3 ML PEN SUBQ SCH ×2 (16:39→19:50)
--- NOTE | 2023-12-31 17:30 | PROVIDER PROGRESS NOTE ---
Subjective Prog Note Date Prog Note Date: 12/31/23 Prog Note Time: 17:29 Subjective Pt reports feeling: Improved Subjective: This gentleman was admitted December 29. He has a history of COPD on home O2 of 2 and half liters, atrial fibrillation on a DOAC, hypertension, diabetes, chronic kidney disease and a recent admission for hypercarbic respiratory failure causing altered mental status. It was postulated that he may be having hypoxia because he is dislodging his oxygen while he sleeping at night. With that admission he received BiPAP and his CO2 trended down to normal over 2 days. He also was able to come back down to his usual home setting of nasal cannula of 1 to 2 L. Treatment consisted of IV Solu-Medrol, p.o. prednisone after that. 3 days of azithromycin. DuoNebs. He was continued on the Spiriva when he went home. It was recommended that he follow-up for sleep study. He has not had enough time to see his primary care provider and get that taken care of. His PCP is Angel France MD. in looking at his records with us I am not finding an echocardiogram on him. He now presents with similar complaints as he did before. Between yesterday and today he was treated as pulmonary edema with elevated BNP. He may have new CHF. He was put in the ICU and put on BiPAP and diuresed. He had brisk urination. From 2:15 in the afternoon yesterday until 11:00 last night he put out 2625 cc. His oxygen requirement is gone from 4 L to 3 L and this morning he is on his baseline 1-1/2 L. Blood pressure stayed stable at 156/90, 134/75, 146/78. Heart rate is in the 80s. When he was discharged December 26 his weight was 103. When he was in the ER his weight was 106. On admission to Med Surg, he was 103 kg. This morning he is 102 kg. Shortness of breath has improved. He is alert and oriented. Current Medications Current Medications Current Medications: Current Medications Generic Name Dose Route Start Last Admin Trade Name Freq PRN Reason Stop Dose Admin Acetaminophen 650 mg 12/30/23 16:05 Acetaminophen 325 Mg Tablet PO Q4HR PRN Pain 1 to 4, or Fever Albuterol/Ipratropium 3 ml 12/31/23 08:30 12/31/23 15:12 Ipratropium/Albuterol 3 Ml Neb INH 3 ml RTQID DHEERAJ Administration Amlodipine Besylate 2.5 mg 12/31/23 09:00 12/31/23 08:50 Amlodipine 5 Mg Tablet PO 2.5 mg DAILY DHEERAJ Administration Apixaban 2.5 mg 12/30/23 21:00 12/31/23 08:51 Apixaban 2.5 Mg Tablet PO 2.5 mg BID DHEERAJ Administration Atorvastatin Calcium 40 mg 12/31/23 09:00 12/31/23 08:52 Atorvastatin 40 Mg Tablet PO 40 mg DAILY DHEERAJ Administration Carvedilol 25 mg 12/30/23 19:00 12/31/23 08:51 Carvedilol 12.5 Mg Tablet PO 25 mg BID DHEERAJ Administration Cholecalciferol 5,000 unit 12/31/23 09:00 12/31/23 08:52 Cholecalciferol 5,000 Unit Capsule PO 5,000 unit DAILY DHEERAJ Administration Docusate Sodium 100 mg 12/30/23 17:56 12/31/23 08:51 Docusate Sodium 100 Mg Capsule PO 100 mg DAILY PRN Administration constipation Furosemide 40 mg 12/30/23 19:00 12/31/23 14:04 Furosemide 40 Mg/4 Ml Vial IVP 40 mg BIDDIURETIC DHEERAJ Administration Insulin Glargine-yfgn 15 unit 12/30/23 21:00 12/30/23 21:20 Insulin Glargine-Yfgn 300 Unit/3 Ml Pen SUBQ 15 unit QPM DHEERAJ Administration Insulin Human Lispro 2 - 10 unit 12/31/23 17:00 12/31/23 16:39 Insulin Lispro 300 Unit/3 Ml Pen SUBQ 8 unit 0800,1200,1700,2100 DHEERAJ Administration Protocol Isosorbide Mononitrate 60 mg 12/30/23 19:00 12/31/23 08:51 Isosorbide Mononitrate Er 30 Mg Tablet PO 60 mg BID DHEERAJ Administration Latanoprost 1 drops 12/30/23 21:00 12/30/23 23:38 Latanoprost 0.005% Ophth Drops EACHEYE 1 drops QPM DHEERAJ Administration Melatonin 3 mg 12/30/23 19:11 12/31/23 00:14 Melatonin 3 Mg Tablet PO 3 mg HS PRN Administration sleep Ondansetron HCl 4 mg 12/30/23 16:05 Ondansetron 4 Mg/2 Ml Vial IVP Q6HR PRN Nausea / Vomiting Sodium Chloride 10 ml 12/30/23 17:00 12/31/23 09:00 Sodium Chloride Flush 0.9% 10 Ml Syringe IVP 10 ml 0100,0900,1700 DHEERAJ Administration Sodium Chloride 10 ml 12/30/23 16:05 12/31/23 14:10 Sodium Chloride Flush 0.9% 10 Ml Syringe IVP 10 ml PRN PRN Administration NEEDED PER PROVIDER ORDERS Tamsulosin HCl 0.4 mg 12/31/23 09:00 12/31/23 08:50 Tamsulosin 0.4 Mg Capsule PO 0.4 mg DAILY DHEERAJ Administration Objective Vital Signs/Intake & Output Reviewed Vital Signs: Yes Vital Signs: Vital Signs x48h Pulse Pulse Resp BP Pulse Ox O2 Flow Rate 12/31/23 17:00 81 22 146/78 H 92 1.5 12/31/23 16:00 89 19 136/78 H 92 1.5 12/31/23 15:13 82 18 1.5 12/31/23 15:00 82 19 151/77 H 94 1.5 12/31/23 14:00 88 19 138/66 H 96 1.5 12/31/23 13:00 87 23 144/69 H 94 1.5 12/31/23 12:00 96 H 24 111/79 91 L 1.5 12/31/23 11:19 88 18 1.5 12/31/23 11:19 1.5 12/31/23 11:00 88 22 157/86 H 94 1.5 12/31/23 10:00 86 19 144/70 H 95 1.5 Intake & Output: Intake & Output 12/29/23 12/30/23 12/31/23 01/01/24 05:59 05:59 04:59 05:59 Intake Total 150 / 150 1660 / 1660 Output Total 3225 / 3225 1600 / 1600 Balance -3075 / -3075 60 / 60 Weight (kg) 103.5 kg 102 kg Objective General Appearance: positive No acute distress Eyes Bilateral: positive Normal inspection and EOMI ENT: positive No signs of dehydration Neck: positive No JVD Respiratory: positive No respiratory distress and Rhonchi (Occasional); negative Wheezes (He does have prolonged end exhalation phase.) Cardiovascular: positive Regular rate & rhythm and Systolic murmur Abdomen: positive Non-tender, Nml bowel sounds and No distention Skin: positive No rash, Warm and Dry Extremities: positive Non-tender and Pedal edema (While I do see pedal edema and nursing reports from yesterday today that is improved) Neurologic/Psychiatric: positive Oriented x3 and Mood/affect nml Lab Results 12/31/23 04:31 12/31/23 04:31 Other Labs: Lab Results x24hrs 12/31/23 12/31/23 12/31/23 Range/Units 16:34 11:51 08:07 WBC (4.8-10.8) x10^3/uL RBC (4.70-6.10) 10^6/uL Hgb (14.0-18.0) g/dL Hct (42.0-52.0) % MCV (80.0-94.0) fL MCH (27.0-31.0) pg MCHC (32.0-36.0) g/dL RDW (12.0-15.0) % Plt Count (130-450) 10^3/uL MPV (7.4-11.4) fL Neut # (Auto) (1.5-6.6) 10^3/uL Lymph # (Auto) (1.5-3.5) 10^3/uL [place] # (Auto) (0.0-1.0) 10^3/uL Eos # (Auto) (0.0-0.7) 10^3/uL Baso # (Auto) (0.0-0.1) 10^3/uL Absolute Nucleated RBC x10^3/uL Nucleated RBC % /100WBC VBG pH (7.31-7.41) VBG pCO2 (41-51) mmHg VBG pO2 (25-47) mmHg VBG HCO3 (23-28) mmol/L VBG Total CO2 (24-29) mmol/L VBG O2 Saturation (60-80) % VBG Base Excess (-2 - +2) mmol/L Ionized Calcium (1.15-1.33) mmol/L Sodium (135-145) mmol/L Potassium (3.5-4.5) mmol/L Chloride (101-111) mmol/L Carbon Dioxide (21-32) mmol/L Anion Gap (6-13) BUN (6-20) mg/dL Creatinine (0.6-1.3) mg/dL Estimated GFR (MDRD) (>89) Glucose (74-104) mg/dL POC Whole Bld Glucose 305 335 232 (70-100) mg/dL Calcium (8.5-10.3) mg/dL Phosphorus (2.5-5.0) mg/dL Magnesium (1.7-2.3) mg/dL Nasal Screen MRSA (PCR) (NEGATIVE) 12/31/23 12/31/23 12/30/23 Range/Units 04:31 04:31 22:31 WBC 9.3 (4.8-10.8) x10^3/uL RBC 4.02 L (4.70-6.10) 10^6/uL Hgb 12.2 L (14.0-18.0) g/dL Hct 39.2 L (42.0-52.0) % MCV 97.5 H (80.0-94.0) fL MCH 30.3 (27.0-31.0) pg MCHC 31.1 L (32.0-36.0) g/dL RDW 15.7 H (12.0-15.0) % Plt Count 102 L (130-450) 10^3/uL MPV 10.9 (7.4-11.4) fL Neut # (Auto) 8.2 H (1.5-6.6) 10^3/uL Lymph # (Auto) 0.7 L (1.5-3.5) 10^3/uL [place] # (Auto) 0.3 (0.0-1.0) 10^3/uL Eos # (Auto) 0.0 (0.0-0.7) 10^3/uL Baso # (Auto) 0.0 (0.0-0.1) 10^3/uL Absolute Nucleated RBC 0.02 x10^3/uL Nucleated RBC % 0.2 /100WBC VBG pH 7.324 7.312 7.272 L (7.31-7.41) VBG pCO2 50.2 59.8 H (41-51) mmHg VBG pO2 52.3 H 30.2 (25-47) mmHg VBG HCO3 24.8 27.0 (23-28) mmol/L VBG Total CO2 26.4 28.8 (24-29) mmol/L VBG O2 Saturation 88.6 H 62.3 (60-80) % VBG Base Excess -1.9 -1.1 (-2 - +2) mmol/L Ionized Calcium 1.10 L (1.15-1.33) mmol/L Sodium 142 (135-145) mmol/L Potassium 4.7 H (3.5-4.5) mmol/L Chloride 106 (101-111) mmol/L Carbon Dioxide 30 (21-32) mmol/L Anion Gap 6.0 (6-13) BUN 71 H (6-20) mg/dL Creatinine 3.1 H (0.6-1.3) mg/dL Estimated GFR (MDRD) 19 L (>89) Glucose 289 H (74-104) mg/dL POC Whole Bld Glucose (70-100) mg/dL Calcium 8.5 (8.5-10.3) mg/dL Phosphorus 4.3 (2.5-5.0) mg/dL Magnesium 2.2 (1.7-2.3) mg/dL Nasal Screen MRSA (PCR) (NEGATIVE) 12/30/23 12/30/23 Range/Units 21:05 16:34 WBC (4.8-10.8) x10^3/uL RBC (4.70-6.10) 10^6/uL Hgb (14.0-18.0) g/dL Hct (42.0-52.0) % MCV (80.0-94.0) fL MCH (27.0-31.0) pg MCHC (32.0-36.0) g/dL RDW (12.0-15.0) % Plt Count (130-450) 10^3/uL MPV (7.4-11.4) fL Neut # (Auto) (1.5-6.6) 10^3/uL Lymph # (Auto) (1.5-3.5) 10^3/uL [place] # (Auto) (0.0-1.0) 10^3/uL Eos # (Auto) (0.0-0.7) 10^3/uL Baso # (Auto) (0.0-0.1) 10^3/uL Absolute Nucleated RBC x10^3/uL Nucleated RBC % /100WBC VBG pH (7.31-7.41) VBG pCO2 (41-51) mmHg VBG pO2 (25-47) mmHg VBG HCO3 (23-28) mmol/L VBG Total CO2 (24-29) mmol/L VBG O2 Saturation (60-80) % VBG Base Excess (-2 - +2) mmol/L Ionized Calcium (1.15-1.33) mmol/L Sodium (135-145) mmol/L Potassium (3.5-4.5) mmol/L Chloride (101-111) mmol/L Carbon Dioxide (21-32) mmol/L Anion Gap (6-13) BUN (6-20) mg/dL Creatinine (0.6-1.3) mg/dL Estimated GFR (MDRD) (>89) Glucose (74-104) mg/dL POC Whole Bld Glucose 243 (70-100) mg/dL Calcium (8.5-10.3) mg/dL Phosphorus (2.5-5.0) mg/dL Magnesium (1.7-2.3) mg/dL Nasal Screen MRSA (PCR) NEGATIVE (NEGATIVE) Assessment/Plan Problem List (1) Acute on chronic respiratory failure with hypoxia and hypercapnia: Impression: He has chronic COPD, and now acute decompensation is there is due to more cardiac causes than lung causes from what we can tell.. Objective data shows that his acute decompensation could be from a new diagnosis of congestive heart failure. Nonspecific with regards to whether systolic or diastolic. Treatment for the COPD consisted of DuoNeb, and treatment for the CHF is diuresis with Lasix which is 40 mg IV twice daily. Nursing Also reports spontaneous desaturation at night when he goes to sleep. Plan: Continue treatment for 24 more hours. And then tomorrow change him to p.o. Lasix. Continue DuoNebs. Will also call his primary care provider tomorrow and see if we can get a sleep study ordered on him. Again we were wondering if part of his hypoxia may be overnight hypoxemia because of oxygen falling off. Or could he have obstructive sleep apnea. I will transfer to Med Surg in the [facility] and not today due to the desat with sleep. (2) COPD (chronic obstructive pulmonary disease): Impression: On DuoNeb. I am not resuming his steroids at this time. Qualifiers: COPD type: COPD with acute exacerbation Qualified Code(s): J44.1 - Chronic obstructive pulmonary disease with (acute) exacerbation (3) Acute heart failure: Impression: Definitely responded to diuresis. Oxygen is back to baseline. He is lost a couple of pounds of weight. Diuresis has been aggressive. Reviewing his home med list he is on a beta-brittany, and diuretic. But he denies any history of congestive heart failure. Plan: Continue Lasix 40 mg IV push for 2 more doses. I will order echocardiogram for tomorrow morning. Call his PCP office tomorrow to see if there is an old echocardiogram or a cardiology consult. (4) CKD (chronic kidney disease): Impression: This gentleman appears to have chronic kidney disease with a creatinine that bumped up to 3.8 by December 23, 2023. The most recent creatinine that we have in the chart was November 2019 where he was 1.4. He stayed above 3.0 throughout his entire last day. At discharge he was 3.3. Yesterday he was 3.3, today he is 3.1. Sees a auto body service mechanic. I will verify who that is and make contact with him. With his previous hospitalization that was discussed but I am not seeing documentation in the chart who that was. (5) Diabetes: Impression: At home he is on Ozempic and 70/30. He is on Lantus 15 units at hs and ss insulin before meals here. His last admission part of his hyperglycemia was due to steroids for his COPD. I am not resuming his steroids. I feel most of his problem is cardiac and not long. Even in spite of being on his Lantus and sliding scale insulin he is still high. With that regimen his glucose was 232 this morning. 335 before lunch. 305 before dinner. Plan: Will order an A1c for the morning. I will also add 5 units of lispro before each meal. Qualifiers: Chronic kidney disease stage: unspecified stage Diabetes mellitus complication detail: with chronic kidney disease Diabetes mellitus complication status: with kidney complications Diabetes mellitus terminal press operator insulin use: with longterm use Diabetes mellitus type: type 2 Qualified Code(s): E11.22 - Type 2 diabetes mellitus with diabetic chronic kidney disease; Z79.4 - lobsterman (current) use of insulin (6) Hyperkalemia: Impression: With his last admission his high was 5.4. He was discharged 4.8. So far this admission has been 4.7 consistently. He may be in chronic renal failure? Plan: Check retroperitoneal ultrasound to make sure he is not obstructed. Does describe prostatism and is on Flomax. I am also going to be checking his echocardiogram to see what his ejection fraction is. His home medications have him on Bumex but he is not on spironolactone. He is not on an KAVITA inhibitor or an ARB drug. So it is not iatrogenic. I am also going to check in with his auto body service mechanic. (7) Hypertension: Impression: Currently on amlodipine 2.5 mg daily. Carvedilol 12.5 mg twice daily. Lasix 40 mg IV push twice daily. Isosorbide mononitrate extended release 30 mg daily. Those are his usual home meds other than the fact that Lasix IV has been substituted for his Bumex. Plan: I will increase Norvasc to 5 mg daily Qualifiers: Hypertension type: primary hypertension Qualified Code(s): I10 - Essential (primary) hypertension
[2024-01-01] MEDS: ACETAMINOPHEN 325 MG TABLET PO PRN (02:05)
[2024-01-01 05:13] LABS: CALCIUM, IONIZED 1.05 mmol/L (1.15-1.33); VBG PH 7.413 (7.31-7.41)
[2024-01-01 05:22] LABS: CALCIUM 8.4 mg/dL (8.5-10.3); CREATININE 3.1 mg/dL (0.6-1.3); MAGNESIUM 1.9 mg/dL (1.7-2.3); PHOSPHORUS 3.1 mg/dL (2.5-5.0); POTASSIUM 3.5 mmol/L (3.5-4.5)
[2024-01-01 06:40] LABS: BASOPHILS % (AUTO) 0.1 %; EOSINOPHILS # (AUTO) 0.2 10^3/uL (0.0-0.7); EOSINOPHILS % (AUTO) 1.7 %; HCT - HEMATOCRIT 36.8 % (42.0-52.0); HGB - HEMOGLOBIN 11.8 g/dL (14.0-18.0); LYMPHOCYTES # (AUTO) 1.8 10^3/uL (1.5-3.5); MEAN CORPUSCULAR HEMOGLOBIN 30.8 pg (27.0-31.0); MEAN CORPUSCULAR HGB CONC 32.1 g/dL (32.0-36.0); MEAN CORPUSCULAR VOLUME 96.1 fL (80.0-94.0); MEAN PLATELET VOLUME 10.4 fL (7.4-11.4); MONOCYTES # (AUTO) 0.8 10^3/uL (0.0-1.0); MONOCYTES % (AUTO) 7.4 %; NEUTROPHILS # (AUTO) 7.9 10^3/uL (1.5-6.6); NEUTROPHILS % (AUTO) 73.2 %; PLT - PLATELET COUNT 112 10^3/uL (130-450); RED BLOOD COUNT 3.83 10^6/uL (4.70-6.10); RED CELL DISTRIBUTION WIDTH 15.6 % (12.0-15.0); WHITE BLOOD COUNT 10.8 x10^3/uL (4.8-10.8)
[2024-01-01] MEDS: amLODIPine 5 MG TABLET PO SCH (08:49)
--- NOTE | 2024-01-01 17:10 | PROVIDER PROGRESS NOTE ---
Subjective Prog Note Date Prog Note Date: 01/01/24 Prog Note Time: 17:10 Subjective Pt reports feeling: No change Subjective: He feels worse today. More short of breath. More chest tightness. But his oxygen has improved. His potassium has improved. He is lost approximately 6 kg of water weight. Current Medications Current Medications Current Medications: Current Medications Generic Name Dose Route Start Last Admin Trade Name Freq PRN Reason Stop Dose Admin Acetaminophen 650 mg 12/30/23 16:05 01/01/24 02:05 Acetaminophen 325 Mg Tablet PO 650 mg Q4HR PRN Administration Pain 1 to 4, or Fever Albuterol/Ipratropium 3 ml 12/31/23 08:30 01/01/24 14:54 Ipratropium/Albuterol 3 Ml Neb INH 3 ml RTQID DHEERAJ Administration Amlodipine Besylate 5 mg 01/01/24 09:00 01/01/24 08:49 Amlodipine 5 Mg Tablet PO 5 mg DAILY DHEERAJ Administration Apixaban 2.5 mg 12/30/23 21:00 01/01/24 08:49 Apixaban 2.5 Mg Tablet PO 2.5 mg BID DHEERAJ Administration Atorvastatin Calcium 40 mg 12/31/23 09:00 01/01/24 08:49 Atorvastatin 40 Mg Tablet PO 40 mg DAILY DHEERAJ Administration Carvedilol 25 mg 12/30/23 19:00 01/01/24 09:00 Carvedilol 12.5 Mg Tablet PO 25 mg BID DHEERAJ Administration Cholecalciferol 5,000 unit 12/31/23 09:00 01/01/24 08:49 Cholecalciferol 5,000 Unit Capsule PO 5,000 unit DAILY DHEERAJ Administration Docusate Sodium 100 mg 12/30/23 17:56 01/01/24 08:48 Docusate Sodium 100 Mg Capsule PO 100 mg DAILY PRN Administration constipation Insulin Glargine-yfgn 15 unit 12/30/23 21:00 12/31/23 21:31 Insulin Glargine-Yfgn 300 Unit/3 Ml Pen SUBQ 15 unit QPM DHEERAJ Administration Insulin Human Lispro 2 - 10 unit 12/31/23 17:00 01/01/24 16:51 Insulin Lispro 300 Unit/3 Ml Pen SUBQ 6 unit 0800,1200,1700,2100 DHEERAJ Administration Protocol Insulin Human Lispro 5 unit 12/31/23 19:00 01/01/24 16:52 Insulin Lispro 300 Unit/3 Ml Pen SUBQ 5 unit TIDWM DHEERAJ Administration Isosorbide Mononitrate 60 mg 12/30/23 19:00 01/01/24 08:48 Isosorbide Mononitrate Er 30 Mg Tablet PO 60 mg BID DHEERAJ Administration Latanoprost 1 drops 12/30/23 21:00 12/31/23 21:33 Latanoprost 0.005% Ophth Drops EACHEYE 1 drops QPM DHEERAJ Administration Melatonin 3 mg 12/30/23 19:11 01/01/24 02:04 Melatonin 3 Mg Tablet PO 3 mg HS PRN Administration sleep Ondansetron HCl 4 mg 12/30/23 16:05 Ondansetron 4 Mg/2 Ml Vial IVP Q6HR PRN Nausea / Vomiting Sodium Chloride 10 ml 12/30/23 17:00 01/01/24 16:55 Sodium Chloride Flush 0.9% 10 Ml Syringe IVP 10 ml 0100,0900,1700 DHEERAJ Administration Sodium Chloride 10 ml 12/30/23 16:05 01/01/24 07:11 Sodium Chloride Flush 0.9% 10 Ml Syringe IVP 10 ml PRN PRN Administration NEEDED PER PROVIDER ORDERS Tamsulosin HCl 0.4 mg 12/31/23 09:00 01/01/24 08:49 Tamsulosin 0.4 Mg Capsule PO 0.4 mg DAILY DHEERAJ Administration Objective Vital Signs/Intake & Output Reviewed Vital Signs: Yes Vital Signs: Vital Signs Temp Pulse Pulse Resp BP Pulse Ox O2 Flow Rate 01/01/24 17:00 87 11 L 164/85 H 95 1.5 01/01/24 16:00 37.6 C 89 18 166/87 H 94 1.5 01/01/24 15:00 80 13 137/94 H 95 1.5 01/01/24 14:54 1.5 01/01/24 14:54 89 17 01/01/24 14:00 81 19 113/64 96 1.5 Intake & Output: Intake & Output 12/30/23 12/31/23 01/01/24 01/02/24 05:59 04:59 05:59 05:59 Intake Total 150 / 150 2019 1060 / 1060 Output Total 3225 / 3225 4400 / 4400 750 / 750 Balance -3075 / -3075 -2380 / -2380 310 / 310 Weight (kg) 103.5 kg 102 kg 100.5 kg Objective General Appearance: positive No acute distress and Alert ENT: positive No signs of dehydration Neck: positive Nml inspection and No JVD Respiratory: positive No respiratory distress and Other (Prolonged and exhalation but no wheezing); negative Rales or Rhonchi Cardiovascular: positive Regular rate & rhythm and Systolic murmur Abdomen: positive Non-tender, No organomegaly and Nml bowel sounds Skin: positive No rash and Dry Extremities: positive Non-tender, Full ROM and No pedal edema Neurologic/Psychiatric: positive Oriented x3 Lab Results 01/01/24 04:29 01/01/24 04:29 Other Labs: Lab Results x24hrs 01/01/24 01/01/24 01/01/24 Range/Units 16:41 11:39 08:33 WBC (4.8-10.8) x10^3/uL RBC (4.70-6.10) 10^6/uL Hgb (14.0-18.0) g/dL Hct (42.0-52.0) % MCV (80.0-94.0) fL MCH (27.0-31.0) pg MCHC (32.0-36.0) g/dL RDW (12.0-15.0) % Plt Count (130-450) 10^3/uL MPV (7.4-11.4) fL Neut # (Auto) (1.5-6.6) 10^3/uL Lymph # (Auto) (1.5-3.5) 10^3/uL Dunn # (Auto) (0.0-1.0) 10^3/uL Eos # (Auto) (0.0-0.7) 10^3/uL Baso # (Auto) (0.0-0.1) 10^3/uL Absolute Nucleated RBC x10^3/uL Nucleated RBC % /100WBC VBG pH (7.31-7.41) Ionized Calcium (1.15-1.33) mmol/L Sodium (135-145) mmol/L Potassium (3.5-4.5) mmol/L Chloride (101-111) mmol/L Carbon Dioxide (21-32) mmol/L Anion Gap (6-13) BUN (6-20) mg/dL Creatinine (0.6-1.3) mg/dL Estimated GFR (MDRD) (>89) Glucose (74-104) mg/dL POC Whole Bld Glucose 232 178 141 (70-100) mg/dL Calcium (8.5-10.3) mg/dL Phosphorus (2.5-5.0) mg/dL Magnesium (1.7-2.3) mg/dL B-Natriuretic Peptide (5-100) pg/mL 01/01/24 Range/Units 04:29 WBC 10.8 (4.8-10.8) x10^3/uL RBC 3.83 L (4.70-6.10) 10^6/uL Hgb 11.8 L (14.0-18.0) g/dL Hct 36.8 L (42.0-52.0) % MCV 96.1 H (80.0-94.0) fL MCH 30.8 (27.0-31.0) pg MCHC 32.1 (32.0-36.0) g/dL RDW 15.6 H (12.0-15.0) % Plt Count 112 L (130-450) 10^3/uL MPV 10.4 (7.4-11.4) fL Neut # (Auto) 7.9 H (1.5-6.6) 10^3/uL Lymph # (Auto) 1.8 (1.5-3.5) 10^3/uL Dunn # (Auto) 0.8 (0.0-1.0) 10^3/uL Eos # (Auto) 0.2 (0.0-0.7) 10^3/uL Baso # (Auto) 0.0 (0.0-0.1) 10^3/uL Absolute Nucleated RBC 0.00 x10^3/uL Nucleated RBC % 0.0 /100WBC VBG pH 7.413 H (7.31-7.41) Ionized Calcium 1.05 L (1.15-1.33) mmol/L Sodium 142 (135-145) mmol/L Potassium 3.5 (3.5-4.5) mmol/L Chloride 105 (101-111) mmol/L Carbon Dioxide 31 (21-32) mmol/L Anion Gap 6.0 (6-13) BUN 73 H (6-20) mg/dL Creatinine 3.1 H (0.6-1.3) mg/dL Estimated GFR (MDRD) 19 L (>89) Glucose 156 H (74-104) mg/dL POC Whole Bld Glucose (70-100) mg/dL Calcium 8.4 L (8.5-10.3) mg/dL Phosphorus 3.1 (2.5-5.0) mg/dL Magnesium 1.9 (1.7-2.3) mg/dL B-Natriuretic Peptide 810 H (5-100) pg/mL Assessment/Plan Problem List (1) Acute on chronic respiratory failure with hypoxia and hypercapnia: Impression: He has chronic COPD, and now acute decompensation that I feel is due to more cardiac causes than lung causes from what I can tell.. Objective data shows that his acute decompensation could be from a new diagnosis of congestive heart failure. Echo shows preserved EF. Treatment for the COPD consisted of DuoNeb, and treatment for the CHF is diuresis with Lasix which is 40 mg IV twice daily. Nursing Also reports spontaneous desaturation at night when he goes to sleep. Had to go back on Bipap this morning around 4 am but able to come off by 8 am. Plan: I changed him to po lasix today. I am continuing DuoNebs. I was unable to reach his primary care provider today for an outpt sleep lab order and will try again tomorrow. Again we were wondering if part of his hypoxia may be overnight hypoxemia because of oxygen falling off. Or could he have obstructive sleep apnea. I keep on thinking I will transfer to med surg but with his occ need for Bipap I am keeping him in ICU. Respiratory therapy tells me that he may need an outpatient sleep study before we can order BiPAP or trilogy for him in the outpatient setting. He may be able to be discharged tomorrow if he does not desaturate excessively tonight (2) COPD (chronic obstructive pulmonary disease): Impression: On DuoNeb. I am not resuming his steroids at this time. Qualifiers: COPD type: COPD with acute exacerbation Qualified Code(s): J44.1 - Chronic obstructive pulmonary disease with (acute) exacerbation (3) Acute heart failure: Impression: Definitely responded to diuresis. Oxygen is back to baseline. Today he is better than yesterday and he is down to 1.5 liters of NC. Reviewed his echocardiogram done during this admission and his ejection fraction is normal. Minimal tricuspid regurgitation that cannot be really seen. RV systolic function appears normal. IVC is dilated. Atria are normal size. He does have basilar wall hypokinesis. Weight shows a definite change with the diuresis I instituted. In the ER he was 106 mg. On MedSurg he was 103 kg. Then 102 kg yesterday. Today he is 100.5 kg. Plan: I will change my lasix order to his home Bumex (which is 1.5 mg daily) to 1 mg daily and to start tomorrow am since he already received lasix this mornign. He is already on Coreg 25 p.o. twice daily here, Norvasc 5 mg p.o. daily.. (4) CKD (chronic kidney disease): Impression: This gentleman appears to have chronic kidney disease with a creatinine that bumped up to 3.8 by December 23, 2023. The most recent creatinine that we have in the chart was November 2019 where he was 1.4. He stayed above 3.0 throughout his entire last day. At discharge he was 3.3. 12/29 he was 3.3, 12/30 and today he is 3.1. Sees a conference planning manager. I will verify who that is and make contact with him. With his previous hospitalization that was discussed but I am not seeing documentation in the chart who that was. (5) Diabetes: Impression: At home he is on Ozempic and 70/30. He is on Lantus 15 units at hs and ss insulin before meals here. His last admission part of his hyperglycemia was due to steroids for his COPD. I am not resuming his steroids. I feel most of his problem is cardiac and not long. Even in spite of being on his Lantus and sliding scale insulin he is still high. With that regimen his glucose was 232 at breakfast yesterday, 335 before lunch. 305 before dinner. A1c is 8.5% . I added 5 units of lispro before each meal on top of our lantus and ss insulin achs. Glucose today is 141, 178, 232. So that is improved. Plan: I will not change his dosing today. Continue Lantus 15 units at at bedtime, 5 units of lispro before each meal, and sliding scale insulin before each meal. Qualifiers: Chronic kidney disease stage: unspecified stage Diabetes mellitus complication detail: with chronic kidney disease Diabetes mellitus complication status: with kidney complications Diabetes mellitus nursing home insulin use: with long term care social worker use Diabetes mellitus type: type 2 Qualified Code(s): E11.22 - Type 2 diabetes mellitus with diabetic chronic kidney disease; Z79.4 - [facility] (current) use of insulin (6) Hyperkalemia: Impression: With his last admission his high was 5.4. He was discharged 4.8. So far this admission has been 4.7 consistently. Today he is normal at 3.5. He is not with low EF to cause low outflow state to cause CKD. I ordered a retroperitoneal US and not done as of this evening. Does describe prostatism and is on Flomax. His home medications have him on Bumex but he is not on spironolactone. He is not on an KAVITA inhibitor or an ARB drug. So it is not iatrogenic. I have not been able to check in with his conference planning manager adn will try tomorrow. (7) Hypertension: Impression: Currently on amlodipine 5 mg daily ( I increased that from 2.5 this morning) Carvedilol 25 mg twice daily. Lasix 40 mg IV push twice daily was stopped after this morning's dose. Isosorbide mononitrate extended release 30 mg daily. Those are his usual home meds other than the fact that Lasix IV has been substituted for his Bumex. Tomorrow am will be his first dose of home bumex. He is 164/85 this afternoon. Plan: No changes for his meds today. Literature suggest that chasing the blood pressure and trying to aim for normal blood pressure and a short amount of time is more detrimental to the patient Qualifiers: Hypertension type: primary hypertension Qualified Code(s): I10 - Essential (primary) hypertension
--- NOTE | 2024-01-01 22:31 | Ultrasound Report ---
PROCEDURE: US Renal (Retroperitoneal) INDICATIONS: chronic renal failure with K 5.4 TECHNIQUE: Real-time scanning was performed of the retroperitoneal organs, with image documentation. COMPARISON: None. FINDINGS: Right kidney measures 9 cm left kidney measures 12 cm. Cortical thinning bilaterally measuring 0.8 to 0.9 cm in thickness. Right superior pole mass measures 2.7 x 2.8 cm. Inferior pole cyst measures 3.1 x 2.7 cm. Prevoid bladder volume is 490 cc. Patient was unable to void. No hydronephrosis. IMPRESSION: Right solid renal mass at the superior aspect measuring up to 2.8 x 2.7 cm. No hydronephrosis. Prevoid volume measuring up to 490 cc. Patient wasn't able to void. Mild bilateral cortical thinning. Mildly small right kidney compared to left Reviewed by: Diogenes Proctor MD on 01/01/2024 10:30 PM PST Approved by: Diogenes Proctor MD on 01/01/2024 10:30 PM PST Station ID: [id number]
[2024-01-02 05:18] LABS: CALCIUM, IONIZED 1.08 mmol/L (1.15-1.33); VBG PH 7.341 (7.31-7.41)
[2024-01-02 05:22] LABS: BASOPHILS % (AUTO) 0.1 %; EOSINOPHILS # (AUTO) 0.3 10^3/uL (0.0-0.7); EOSINOPHILS % (AUTO) 3.6 %; HGB - HEMOGLOBIN 12.6 g/dL (14.0-18.0); LYMPHOCYTES # (AUTO) 1.6 10^3/uL (1.5-3.5); LYMPHOCYTES % (AUTO) 18.6 %; MEAN CORPUSCULAR HEMOGLOBIN 30.7 pg (27.0-31.0); MEAN CORPUSCULAR HGB CONC 32.3 g/dL (32.0-36.0); MEAN CORPUSCULAR VOLUME 94.9 fL (80.0-94.0); MEAN PLATELET VOLUME 10.7 fL (7.4-11.4); MONOCYTES # (AUTO) 0.8 10^3/uL (0.0-1.0); NEUTROPHILS # (AUTO) 5.9 10^3/uL (1.5-6.6); PLT - PLATELET COUNT 119 10^3/uL (130-450); RED BLOOD COUNT 4.11 10^6/uL (4.70-6.10); RED CELL DISTRIBUTION WIDTH 15.2 % (12.0-15.0); WHITE BLOOD COUNT 8.7 x10^3/uL (4.8-10.8)
[2024-01-02 05:32] LABS: CALCIUM 8.7 mg/dL (8.5-10.3); CREATININE 2.9 mg/dL (0.6-1.3); MAGNESIUM 1.9 mg/dL (1.7-2.3); PHOSPHORUS 3.6 mg/dL (2.5-5.0); POTASSIUM 3.4 mmol/L (3.5-4.5)
[2024-01-02] MEDS: BUMETANIDE 1 MG TABLET PO SCH (09:23)
[2024-01-02] MEDS: INSULIN LISPRO 300 UNIT/3 ML PEN SUBQ SCH (09:24)
--- NOTE | 2024-01-02 14:12 | Discharge Summary ---
"Discharge Summary Admit Date: 12/30/23 Discharge Date: 01/03/24 Discharging Provider: Dr. Saturnino Dumont Code Status: Attempt Resuscitation DIAGNOSES Admission Diagnoses: COPD Acute hypercapnic respiratory failure Suspect new onset CHF, hypertension CKD stage IV, hyperkalemia Diabetes mellitus type 2, uncontrolled with hyperglycemia Atrial fibrillation Discharge Diagnoses with Status of Each Condition: Acute on chronic hypercapnic respiratory failurepatient now on his baseline oxygen of 1.5 L. Did not require BiPAP overnight. ophthalmic surgical assistant was able to set up noninvasive ventilation at home with trilogy ventilator. I also spoke with the primary care physician's office, Dr. France, and he will also order sleep study. Will continue him on his inhalers, which he has at home. Ordering noninvasive ventilation due to COPD secondary to chronic respiratory failure. BiPAP considered and deemed ineffective. Patient was retaining CO2 per ABGs. If patient continues elevation of CO2 without assistance and reduction, the possible results of her rehospitalization and/or . Patient requires daytime and nighttime use of therapy which will reduce hospital readmissions. COPD on 1.5 L at homepatient has oxygen at home all set up, will continue this at home. Heart failure with preserved ejection fractioncontinue Bumex at home. He was 106 kg on admission, today he is around 100 kg. Chronic kidney disease stage IVsees a personal protection specialist in [place], unclear of name. His creatinine may be at his new baseline. Hyperkalemia controlled at this time. He states that he has his phone number at home, and will call to set up an appointment. Diabetes mellitusadvised to continue his insulin 70/30. Advised to keep sugar log, which she does. Hyperkalemiaresolved. Follow-up with his personal protection specialist and primary care physician on discharge. Hypertensioncontinue amlodipine 5 mg daily, Coreg 25 mg twice daily, Bumex 1.5 mg daily, isosorbide mononitrate 30 mg daily. HPI History of Present Illness: Per Dr. Cooper: 83 yo M with pmhx of COPD on 1-2 L NC O2 at home, DM2 on insulin, HTN, HLD, CKD, recent admission here 12/22- 12/26 for AMS, CO2 retention, hypercarbic respiratory failure, CARISSA. Presenting today by EMS due to generalized weakness. Pt reported onset ~ 8 hrs ago. On my exam he is somnolent, rousable to voice, speaks in few short phrases and then dozes off. Denies pain. Cannot provide much history. In the ED afebrile, HR 95, RR 25, sat 88%, 149/81. Pt was given duoneb and lasix 40 mg iv. He was found to have respiratory acidosis and placed on BiPAP. CONSULTS | PROCEDURES Consultations: Respiratory therapist Procedures: Retroperitoneal ultrasound, head CT HOSPITAL COURSE Hospital Course: Patient is 83-year-old male with a history of COPD on 1 to 2 L of oxygen at home who presents for altered mental status. He was found to be in hypercarbic respiratory failure again. Of note, patient does not have a BiPAP at home, and has no diagnosis of obesity hypoventilation or obstructive sleep apnea. He required BiPAP use for 2 nights. He then improved, and his mental status also improved. The respiratory therapist was just able to set up a trilogy ventilator for him. I also spoke with his primary care physician's office who are working on getting him into a sleep study. He was diuresed extensively while here, and we will continue him on his home Bumex. He was advised extensively to follow-up with his primary care physician, Dr. France. He did have an appointment already scheduled for tomorrow, and that was canceled. He was advised to reschedule JUANA. He was also advised to continue following up with his personal protection specialist. ALLERGIES Allergies Allergy/AdvReac Type Severity Reaction Status Date / Time No Known Drug Allergies Allergy Verified 12/23/23 15:09 MEDICATIONS Ambulatory Orders Medication Instructions Recorded Confirmed bumetanide 0.5 mg tablet 1.5 mg PO DAILY 12/24/23 12/30/23 carvedilol 25 mg tablet 25 mg PO BIDWM 12/24/23 12/31/23 cholecalciferol (vitamin D3) 125 5,000 unit PO DAILY 12/24/23 12/30/23 mcg (5,000 unit) capsule diphenhydramine 25 1 tab PO QPM PRN sleep 12/24/23 12/30/23 mg-acetaminophen 500 mg tablet (Acetaminophen PM) docusate sodium 100 mg capsule 100 mg PO DAILY PRN constipation 12/24/23 12/30/23 gabapentin 400 mg capsule 400 mg PO QPM 12/24/23 12/30/23 insulin aspar prt-insulin aspart See Rx Instructions subcut BID 12/24/23 12/30/23 100 unit/mL (70-30) subcutaneous soln (Novolog Mix 70-30 U-100 Insuln) isosorbide mononitrate 60 mg 60 mg PO BID 12/24/23 12/30/23 tablet,extended release 24 hr latanoprost 0.005 % eye drops 1 drp ophthalmic (eye) QPM 12/24/23 12/30/23 melatonin 1 mg tablet 4 mg PO HS PRN sleep 12/24/23 12/30/23 semaglutide 0.25 mg or 0.5 mg (2 0.5 mg subcut FR 12/24/23 12/30/23 mg/1.5 mL) subcutaneous pen injector (Ozempic) tiotropium bromide 1.25 2 inh inhalation DAILY 12/24/23 12/30/23 mcg/actuation mist for inhalation (Spiriva Respimat) apixaban 2.5 mg tablet 2.5 mg PO BID 12/27/23 12/30/23 atorvastatin 40 mg tablet (Lipitor) 40 mg PO DAILY 12/27/23 12/30/23 tamsulosin 0.4 mg capsule 0.4 mg PO DAILY 12/27/23 12/30/23 amlodipine 5 mg tablet 5 mg PO DAILY #30 tabs 01/02/24 PHYSICAL EXAM AT DISCHARGE General Appearance: positive No acute distress and Alert; negative Anxious Eyes Bilateral: positive Normal inspection, PERRL and EOMI ENT: positive ENT inspection nml, Pharynx nml and No signs of dehydration Neck: positive Nml inspection, Thyroid nml and No JVD; negative Thyromegaly Respiratory: positive Chest non-tender, No respiratory distress and Breath sounds nml; negative Wheezes, Rales or Rhonchi Cardiovascular: positive Regular rate & rhythm, No murmur and No gallop Peripheral Pulses: positive 1+ Abdomen: positive Non-tender and No distention; negative Tenderness, Guarding, Hepatomegaly or Splenomegaly Back: positive Nml inspection; negative CVA tenderness (R) or CVA tenderness (L) Skin: positive Color nml, No rash and Warm Extremities: positive Non-tender and Pedal edema (1+ on RLE, above knee amputation of LLE) Neurologic/Psychiatric: positive Oriented x3 and Mood/affect nml; negative Weakness LABS 01/03/24 04:24 01/03/24 04:24 QUALITY (Female Hip Fx Only) Was patient sent home on osteoporosis medication?: No TIME SPENT Time Spent in Discharge (Minutes): 35 Discharge Plan Discharge Patient Disposition: 06 Home Health Service Condition: Stable Prescriptions: New amlodipine 5 mg Tablet 5 mg PO DAILY Qty: 30 0RF Continued bumetanide 0.5 mg tablet 1.5 mg PO DAILY Patient Comments: TAKE 3 TABLETS BY MOUTH ONCE DAILY isosorbide mononitrate 60 mg tablet extended release 24 hr 60 mg PO BID Patient Comments: TAKE 1 TABLET BY MOUTH TWICE DAILY latanoprost 0.005 % drops 1 drp ophthalmic (eye) QPM Patient Comments: INSTILL 1 DROP INTO EACH EYE IN THE EVENING. REFRIGERATE UNTIL OPENED. DISCARD 6 WEEKS AFTER OPENING. diphenhydramine-acetaminophen [Acetaminophen PM] 25-500 mg tablet 1 tab PO QPM PRN (Reason: sleep) melatonin 1 mg tablet 4 mg PO HS PRN (Reason: sleep) carvedilol 25 mg tablet 25 mg PO BIDWM Rx Instructions: must administer with a meal/food gabapentin 400 mg capsule 400 mg PO QPM Ozempic 0.25 mg or 0.5 mg(2 mg/1.5 mL) pen injector 0.5 mg subcut FR Rx Instructions: for 4 weeks docusate sodium 100 mg capsule 100 mg PO DAILY PRN (Reason: constipation) cholecalciferol (vitamin D3) 125 mcg (5,000 unit) capsule 5,000 unit PO DAILY Spiriva Respimat 1.25 mcg/actuation mist 2 inh inhalation DAILY insulin asp prt-insulin aspart [Novolog Mix 70-30 U-100 Insuln] 100 unit/mL (70-30) solution See Rx Instructions subcut BID Rx Instructions: 10-15 UNIT subcutaneously twice a day; 10 UNITS IF BG LESS THAN 140, 14 UNITS IF BG 141-190, 15 UNITS IF BG OVER 190 atorvastatin [Lipitor] 40 mg tablet 40 mg PO DAILY apixaban 2.5 mg tablet 2.5 mg PO BID tamsulosin 0.4 mg capsule 0.4 mg PO DAILY Discontinued amlodipine [Norvasc] 2.5 mg tablet 2.5 mg PO DAILY prednisone 20 mg tablet 20 mg PO DAILY Qty: 2 0RF Rx Instructions: First dose 12/28/23 Activity Restrictions: Wt Bearing as Tolerated Diet: Diabetic Health Concerns: You came in because you were altered. You stated that your oxygen line was kinked, and you were not sure if you were using it as directed. When you were here, we put you on the BiPAP machine. This helped with your mental status and your CO2 levels. We also gave you some IV medication to help get rid of extra fluid. Today, we switched you back to your regular water pill. I want you to continue to take this at home. We talked about how it was important to follow-up with your primary care physician, Dr. France. I let you know that I did speak with his office, and they are working on ordering you a sleep study. We also talked about the importance of following up with your personal protection specialist in [place]. You stated that you had his number at home. I would like him to recheck your kidney numbers and your potassium levels when you see him. All of your medications were continued as prescribed. We did double the dose of your amlodipine, your blood pressure medication while you are here. I have sent this to your pharmacy. The respiratory therapist, James, was also able to set you up with a home trilogy device. This should help you with your breathing. We are glad you are feeling better, thank you for allowing us to take care of you. Plan of Treatment: 1. Use the trilogy device at night when you are sleeping. 2. Follow-up with your primary care physician. Complete a sleep study. Recheck your kidney levels as well as your potassium levels. 3. Follow-up with your personal protection specialist. 4. Continue to take your medications as prescribed. Print Language: Albanian Patient Instructions: Chronic Lung Disease Exercise, Chronic Lung Disease Dyspnea Scale Stand Alone Forms: PCP List"
[2024-01-02 23:23] VITALS: O2SAT 96
[2024-01-03 04:32] LABS: BASOPHILS % (AUTO) 0.1 %; EOSINOPHILS # (AUTO) 0.4 10^3/uL (0.0-0.7); EOSINOPHILS % (AUTO) 3.9 %; HCT - HEMATOCRIT 37.1 % (42.0-52.0); HGB - HEMOGLOBIN 12.1 g/dL (14.0-18.0); LYMPHOCYTES # (AUTO) 1.7 10^3/uL (1.5-3.5); LYMPHOCYTES % (AUTO) 18.2 %; MEAN CORPUSCULAR HEMOGLOBIN 30.9 pg (27.0-31.0); MEAN CORPUSCULAR HGB CONC 32.6 g/dL (32.0-36.0); MEAN CORPUSCULAR VOLUME 94.9 fL (80.0-94.0); MEAN PLATELET VOLUME 10.7 fL (7.4-11.4); MONOCYTES # (AUTO) 0.9 10^3/uL (0.0-1.0); MONOCYTES % (AUTO) 9.1 %; NEUTROPHILS # (AUTO) 6.5 10^3/uL (1.5-6.6); NEUTROPHILS % (AUTO) 68.4 %; PLT - PLATELET COUNT 108 10^3/uL (130-450); RED BLOOD COUNT 3.91 10^6/uL (4.70-6.10); RED CELL DISTRIBUTION WIDTH 15.2 % (12.0-15.0); WHITE BLOOD COUNT 9.5 x10^3/uL (4.8-10.8)
[2024-01-03 04:48] LABS: CALCIUM 8.5 mg/dL (8.5-10.3); CREATININE 2.8 mg/dL (0.6-1.3); MAGNESIUM 1.8 mg/dL (1.7-2.3); PHOSPHORUS 3.6 mg/dL (2.5-5.0); POTASSIUM 3.6 mmol/L (3.5-4.5)
[2024-01-03 04:52] LABS: CALCIUM, IONIZED 1.06 mmol/L (1.15-1.33); VBG PH 7.406 (7.31-7.41)
--- NOTE | 2024-01-03 08:28 | PROVIDER PROGRESS NOTE ---
Subjective Subjective Subjective: Patient is feeling better, his shortnesss of breath has improved. He denies any cough. He is now alert and oriented x 4. Current Medications Current Medications Current Medications: Current Medications Generic Name Dose Route Start Last Admin Trade Name Freq PRN Reason Stop Dose Admin Acetaminophen 650 mg 12/30/23 16:05 01/03/24 02:08 Acetaminophen 325 Mg Tablet PO 650 mg Q4HR PRN Administration Pain 1 to 4, or Fever Albuterol/Ipratropium 3 ml 12/31/23 08:30 01/03/24 07:32 Ipratropium/Albuterol 3 Ml Neb INH 3 ml RTQID DHEERAJ Administration Amlodipine Besylate 5 mg 01/01/24 09:00 01/02/24 09:22 Amlodipine 5 Mg Tablet PO 5 mg DAILY DHEERAJ Administration Apixaban 2.5 mg 12/30/23 21:00 01/02/24 21:22 Apixaban 2.5 Mg Tablet PO 2.5 mg BID DHEERAJ Administration Atorvastatin Calcium 40 mg 12/31/23 09:00 01/02/24 09:23 Atorvastatin 40 Mg Tablet PO 40 mg DAILY DHEERAJ Administration Bumetanide 1 mg 01/02/24 09:00 01/02/24 09:23 Bumetanide 1 Mg Tablet PO 1 mg DAILY DHEERAJ Administration Carvedilol 25 mg 12/30/23 19:00 01/02/24 21:21 Carvedilol 12.5 Mg Tablet PO 25 mg BID DHEERAJ Administration Cholecalciferol 5,000 unit 12/31/23 09:00 01/02/24 09:23 Cholecalciferol 5,000 Unit Capsule PO 5,000 unit DAILY DHEERAJ Administration Docusate Sodium 100 mg 12/30/23 17:56 01/01/24 08:48 Docusate Sodium 100 Mg Capsule PO 100 mg DAILY PRN Administration constipation Insulin Glargine-yfgn 15 unit 12/30/23 21:00 01/02/24 21:24 Insulin Glargine-Yfgn 300 Unit/3 Ml Pen SUBQ 15 unit QPM DHEERAJ Administration Insulin Human Lispro 5 unit 12/31/23 19:00 01/02/24 17:16 Insulin Lispro 300 Unit/3 Ml Pen SUBQ 5 unit TIDWM DHEERAJ Administration Insulin Human Lispro 3 - 11 unit 01/02/24 08:00 01/02/24 21:28 Insulin Lispro 300 Unit/3 Ml Pen SUBQ 3 unit 0800,1200,1700,2100 [facility] Administration Protocol Isosorbide Mononitrate 60 mg 12/30/23 19:00 01/02/24 21:22 Isosorbide Mononitrate Er 30 Mg Tablet PO 60 mg BID DHEERAJ Administration Latanoprost 1 drops 12/30/23 21:00 01/02/24 21:31 Latanoprost 0.005% Ophth Drops EACHEYE Not Given QPM DHEERAJ Melatonin 3 mg 12/30/23 19:11 01/02/24 21:28 Melatonin 3 Mg Tablet PO 3 mg HS PRN Administration sleep Ondansetron HCl 4 mg 12/30/23 16:05 Ondansetron 4 Mg/2 Ml Vial IVP Q6HR PRN Nausea / Vomiting Sodium Chloride 10 ml 12/30/23 17:00 01/03/24 00:37 Sodium Chloride Flush 0.9% 10 Ml Syringe IVP Not Given 0100,0900,1700 [facility] Sodium Chloride 10 ml 12/30/23 16:05 01/01/24 07:11 Sodium Chloride Flush 0.9% 10 Ml Syringe IVP 10 ml PRN PRN Administration NEEDED PER PROVIDER ORDERS Tamsulosin HCl 0.4 mg 12/31/23 09:00 01/02/24 09:23 Tamsulosin 0.4 Mg Capsule PO 0.4 mg DAILY DHEERAJ Administration Objective Vital Signs/Intake & Output Reviewed Vital Signs: Yes Vital Signs: Vital Signs x48h Pulse Resp O2 Flow Rate 01/03/24 07:33 1.5 01/03/24 07:33 78 20 Intake & Output: Intake & Output 01/01/24 01/02/24 01/03/24 01/04/24 05:59 05:59 05:59 05:59 Intake Total 2019 / 1969 2310 / 2310 Output Total 4400 / 4400 2375 / 2375 1900 / 1900 Balance -2380 / -2380 -405 / -405 410 / 410 Weight (kg) 102 kg 100.5 kg 100 kg 100.5 kg Objective General Appearance: positive No acute distress Eyes Bilateral: positive Normal inspection and EOMI ENT: positive No signs of dehydration Neck: positive No JVD Respiratory: positive No respiratory distress and Rhonchi (Occasional); negative Wheezes (He does have prolonged end exhalation phase.) Cardiovascular: positive Regular rate & rhythm and Systolic murmur Abdomen: positive Non-tender, Nml bowel sounds and No distention Skin: positive No rash, Warm and Dry Extremities: positive Non-tender and Pedal edema (While I do see pedal edema and nursing reports from yesterday today that is improved) Neurologic/Psychiatric: positive Oriented x3 and Mood/affect nml Lab Results 01/03/24 04:24 01/03/24 04:24 Other Labs: Lab Results x24hrs 01/03/24 01/03/24 01/02/24 Range/Units 07:48 04:24 21:03 WBC 9.5 (4.8-10.8) x10^3/uL RBC 3.91 L (4.70-6.10) 10^6/uL Hgb 12.1 L (14.0-18.0) g/dL Hct 37.1 L (42.0-52.0) % MCV 94.9 H (80.0-94.0) fL MCH 30.9 (27.0-31.0) pg MCHC 32.6 (32.0-36.0) g/dL RDW 15.2 H (12.0-15.0) % Plt Count 108 L (130-450) 10^3/uL MPV 10.7 (7.4-11.4) fL Neut # (Auto) 6.5 (1.5-6.6) 10^3/uL Lymph # (Auto) 1.7 (1.5-3.5) 10^3/uL Tucker # (Auto) 0.9 (0.0-1.0) 10^3/uL Eos # (Auto) 0.4 (0.0-0.7) 10^3/uL Baso # (Auto) 0.0 (0.0-0.1) 10^3/uL Absolute Nucleated RBC 0.00 x10^3/uL Nucleated RBC % 0.0 /100WBC VBG pH 7.406 (7.31-7.41) Ionized Calcium 1.06 L (1.15-1.33) mmol/L Sodium 140 (135-145) mmol/L Potassium 3.6 (3.5-4.5) mmol/L Chloride 102 (101-111) mmol/L Carbon Dioxide 34 H (21-32) mmol/L Anion Gap 4.0 L (6-13) BUN 58 H (6-20) mg/dL Creatinine 2.8 H (0.6-1.3) mg/dL Estimated GFR (MDRD) 22 L (>89) Glucose 81 (74-104) mg/dL POC Whole Bld Glucose 97 163 (70-100) mg/dL Calcium 8.5 (8.5-10.3) mg/dL Phosphorus 3.6 (2.5-5.0) mg/dL Magnesium 1.8 (1.7-2.3) mg/dL B-Natriuretic Peptide 862 H (5-100) pg/mL 01/02/24 Range/Units 11:56 WBC (4.8-10.8) x10^3/uL RBC (4.70-6.10) 10^6/uL Hgb (14.0-18.0) g/dL Hct (42.0-52.0) % MCV (80.0-94.0) fL MCH (27.0-31.0) pg MCHC (32.0-36.0) g/dL RDW (12.0-15.0) % Plt Count (130-450) 10^3/uL MPV (7.4-11.4) fL Neut # (Auto) (1.5-6.6) 10^3/uL Lymph # (Auto) (1.5-3.5) 10^3/uL Tucker # (Auto) (0.0-1.0) 10^3/uL Eos # (Auto) (0.0-0.7) 10^3/uL Baso # (Auto) (0.0-0.1) 10^3/uL Absolute Nucleated RBC x10^3/uL Nucleated RBC % /100WBC VBG pH (7.31-7.41) Ionized Calcium (1.15-1.33) mmol/L Sodium (135-145) mmol/L Potassium (3.5-4.5) mmol/L Chloride (101-111) mmol/L Carbon Dioxide (21-32) mmol/L Anion Gap (6-13) BUN (6-20) mg/dL Creatinine (0.6-1.3) mg/dL Estimated GFR (MDRD) (>89) Glucose (74-104) mg/dL POC Whole Bld Glucose 230 (70-100) mg/dL Calcium (8.5-10.3) mg/dL Phosphorus (2.5-5.0) mg/dL Magnesium (1.7-2.3) mg/dL B-Natriuretic Peptide (5-100) pg/mL Assessment/Plan Problem List (1) Acute on chronic respiratory failure with hypoxia and hypercapnia: Impression: Patient now on his baseline oxygen of 1.5 L. Did not require BiPAP overnight. assistant press operator offset was able to set up noninvasive ventilation at home with trilogy ventilator. I also spoke with the primary care physician's office, Dr. [place], and he will also order sleep study. Will continue him on his inhalers, which he has at home. Ordering noninvasive ventilation due to COPD secondary to chronic respiratory failure. BiPAP considered and deemed ineffective. Patient was retaining CO2 per ABGs. If patient continues elevation of CO2 without assistance and reduction, the possible results of her rehospitalization and/or . Patient requires daytime and nighttime use of therapy which will reduce hospital readmissions. (2) COPD (chronic obstructive pulmonary disease): Impression: Patient has oxygen at home all set up, will continue this at home. Qualifiers: COPD type: COPD with acute exacerbation Qualified Code(s): J44.1 - Chronic obstructive pulmonary disease with (acute) exacerbation (3) Acute heart failure: Impression: Continue Bumex. He was 106 kg on admission, today he is around 100 kg. ECHO shows EF of 55-60%, some basal inferior wall hypokinesis noted, dilated IVC. Qualifiers: Heart failure type: unspecified Qualified Code(s): I50.9 - Heart failure, unspecified (4) CKD (chronic kidney disease): Impression: Sees a engineer in [place], unclear of name. His creatinine may be at his new baseline. Hyperkalemia controlled at this time. He states that he has his phone number at home, and will call to set up an appointment. Qualifiers: Chronic kidney disease stage: stage 4 (severe) Qualified Code(s): N18.4 - Chronic kidney disease, stage 4 (severe) (5) Diabetes: Impression: Advised to continue his insulin 70/30. Advised to keep sugar log, which he does and bring in to PCP. Qualifiers: Chronic kidney disease stage: unspecified stage Diabetes mellitus complication detail: with chronic kidney disease Diabetes mellitus complication status: with kidney complications Diabetes mellitus extermination supervisor insulin use: with nursing home use Diabetes mellitus type: type 2 Qualified Code(s): E11.22 - Type 2 diabetes mellitus with diabetic chronic kidney disease; Z79.4 - adjunct faculty for medical terminology (current) use of insulin (6) Hyperkalemia: Impression: Resolved. Follow-up with his engineer and primary care physician on discharge. (7) Hypertension: Impression: Continue amlodipine 5 mg daily, Coreg 25 mg twice daily, Bumex 1.5 mg daily, isosorbide mononitrate 30 mg daily. Qualifiers: Hypertension type: primary hypertension Qualified Code(s): I10 - Essential (primary) hypertension
== END 2024-01-03 11:00 | disposition home health service (06) ==
LOC: ED 09:30 → ICU 09:30
PROVIDERS: ADMIT Physician Assistant Medical; ATTEND Student in an Organized Health Care Education/Training Program
DX: E78.5 Hyperlipidemia, unspecified; Z79.01 Long term (current) use of anticoagulants; I45.2 Bifascicular block; E11.22 Type 2 diabetes mellitus with diabetic chronic kidney disease; E11.65 Type 2 diabetes mellitus with hyperglycemia; N17.9 Acute kidney failure, unspecified; Z79.4 Long term (current) use of insulin; I13.0 Hypertensive heart and chronic kidney disease with heart failure and stage 1 through stage 4 chronic kidney disease, or unspecified chronic kidney disease; J96.21 Acute and chronic respiratory failure with hypoxia; J44.1 Chronic obstructive pulmonary disease with (acute) exacerbation; G93.40 Encephalopathy, unspecified; F17.200 Nicotine dependence, unspecified, uncomplicated; J96.22 Acute and chronic respiratory failure with hypercapnia; Z99.81 Dependence on supplemental oxygen; I48.91 Unspecified atrial fibrillation; I50.31 Acute diastolic (congestive) heart failure; N18.4 Chronic kidney disease, stage 4 (severe); E87.5 Hyperkalemia